=== PATIENT | female | born 1930 | race Caucasian/White ===

== ENCOUNTER 2016-08-03 16:41 | Inpatient (IN) | payer OTHER ==
[~2016-08-03] VITALS: Ht 142.2 cm; Wt 69.1 kg
[~2016-08-03 16:41] MED LIST: AMLO2.5T PO; CALC600T9 PO; FURO40TA3 PO; LOSA100T65 PO; MONT1TAB3 PO; PTU50 PO; SIMV40TA4 PO; SYMIN160 INH; TPRSR/25 PO; WARF3TAB PO
[2016-08-03] MEDS ORDERED: METOPROLOL TARTRATE 1 MG/ML VIAL IV STA (17:46)
[2016-08-03] MEDS ORDERED: ACETAMINOPHEN 500 MG TAB PO STA (17:48)
--- NOTE | 2016-08-03 17:49 | DIAGNOSTIC IMAGING REPORT ---
CHEST ONE VIEW PORTABLE CLINICAL HISTORY: Shortness of breath, cough and weakness. COMPARISON STUDY: Chest radiograph September 21, 2014. FINDINGS: Right lower lung airspace opacity is unchanged since prior exams. Moderate cardiomegaly is unchanged. There is no evidence of pulmonary edema. Widening of the right paratracheal stripe with leftward deviation of the trachea was shown to be due to a thyroid goiter on prior imaging studies. The appearance of the chest is unchanged. IMPRESSION: 1. No change in right lower lung airspace opacity since earlier exams. This may reflect right middle lobe atelectasis. 2. Stable cardiomegaly. No evidence of pulmonary edema. Electronically signed by: Christiano Hernandez M.D. 08/03/2016 5:47 PM Dictated Date/Time: 08/03/2016 5:45 PM
[2016-08-03 18:02] LABS: BASO % 0.2 %; BASO ABS # 0.02 K/uL (0-0.2); COMPLETE YES; EOS % 0.1 %; HEMATOCRIT 32.9 % (37-47); IG% 0.6 %; LYMPH % 3.5 %; LYMPH ABS # 0.41 K/uL (1.2-3.4); MEAN CELL VOLUME 85.5 fL (80-100); MEAN CORPUSCULAR HEMOGLOBIN 30.1 pg (25-34); MEAN CORPUSCULAR HGB CONC 35.3 g/dl (32-36); MEAN PLATELET VOLUME 9.5 fL (7.4-10.4); NEUT % 84.6 %; PLATELET COUNT 291 K/uL (130-400); RED BLOOD COUNT 3.85 M/uL (4.2-5.4)
[2016-08-03] MEDS ORDERED: IPRA0.06 NAE (18:12)
[2016-08-03] MEDS ORDERED: CHOL100041 PO (18:16)
[2016-08-03 18:20] LABS: PARTIAL THROMBOPLASTIN RATIO 1.8
[2016-08-03] MEDS ORDERED: CMD2 PO (18:25)
[2016-08-03 18:26] LABS: POTASSIUM 3.9 mmol/L (3.5-5.1)
[2016-08-03 18:27] LABS: PROTHROMBIN TIME (PATIENT) 53.8 SECONDS (9.0-12.0)
[2016-08-03 18:28] LABS: CALCIUM 8.8 mg/dl (8.5-10.1); CREATININE 1.7 mg/dl (0.60-1.20); INR 4.7 (0.9-1.1)
[2016-08-03 18:29] LABS: BUN/CREATININE RATIO 15.1 (10-20); THYROID STIMULATING HORMONE 0.304 uIu/ml (0.300-4.500)
[2016-08-03 18:34] LABS: CKMB/CK RATIO 1.1 (0-3.0)
[2016-08-03] MEDS ORDERED: LEVAQUIN 750MG / 150ML D5W IV STA (18:59)
[2016-08-03] MEDS ORDERED: MAGNESIUM HYDROXIDE SUSP 30 ML UDC PO PRN (20:00)
[2016-08-03] MEDS ORDERED: POLYETHYLENE (MIRALAX) 17 GM PACK PO PRN (20:00)
[2016-08-03] MEDS ORDERED: IV FLUIDS COMPLETED PRN (20:00)
[2016-08-03] MEDS ORDERED: NITROGLYCERIN 0.4 MG SL PER TAB CHARGE SL PRN (20:00)
[2016-08-03] MEDS ORDERED: ALUMINUM/MAGNESIUM/SIMETH (MAALOX MAX) 30 ML UDC PO PRN (20:00)
[2016-08-03] MEDS ORDERED: ONDANSETRON INJ 2 MG/ML 2 ML VIAL IV PRN (20:00)
[2016-08-03] MEDS ORDERED: WARFARIN SOD 2 MG TAB PO SCH (20:00)
[2016-08-03] MEDS ORDERED: FUROSEMIDE 40 MG TAB PO PRN (20:00)
[2016-08-03] MEDS ORDERED: ACETAMINOPHEN 325 MG TAB PO PRN (20:00)
[2016-08-03 20:10] LABS: PHOSPHORUS 2.9 mg/dl (2.5-4.9)
--- NOTE | 2016-08-03 20:33 | EMERGENCY ROOM VISIT NOTE ---
History Report prepared by Nathen: Andrew Bray Under the Supervision of: Dr. Saroj Jesus M.D. First contact with patient: 17:02 Chief Complaint: SHORTNESS OF BREATH Stated Complaint: SOB, COUGHING History of Present Illness The patient is an 86 year old female who presents to the Emergency Room with complaints of a persistent cough that began on Thursday of last week, five days prior to arrival. The patient is also complaining of shortness of breath and a rapid heart rate. She is experiencing some discomfort over her left chest as well. She denies experiencing any recent fevers or chills recently, but she has had some mild diarrhea and flank pain. The patient does have a history of atrial fibrillation, and states that she is slightly anxious about being in the emergency department. The patient denies LOC, headache, diaphoresis, visual changes, neck pain, breathing difficulties, nausea, vomiting, abdominal pain, melena, hematochezia, urinary symptoms, numbness, weakness, lymphadenopathy, rash, or other complaints. 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 A total of ten systems were reviewed and were otherwise negative. Past Medical & Surgical Medical Problems: (1) Afib (2) Atrial fibrillation (3) Benign hypertension (4) Chronic obstructive lung disease (5) Coronary artery disease (6) Hyperlipidemia (7) Hyperthyroidism (8) Hysterectomy (9) Myocardial infarction (10) orthopedic surgery (11) Osteopenia (12) Peripheral venous insufficiency (13) Shortness of breath Family History Diabetes mellitus Heart disease Hypertension Kidney disease Kidney stones Social History Smoking Status: Former Smoker Alcohol Use: none Marital Status: Housing Status: lives with significant other Occupation Status: retired Current/Historical Medications Scheduled Budesonide/Formoterol Fumarate (Symbicort 160/4.5 Inhaler), 2 PUFFS INH BID Cholecalciferol (D 1000), 1,000 UNITS PO DAILY Ipratropium [place] (Nasal) (Ipratropium [place]), 2 SPRAYS KANU UD Losartan Potassium (Cozaar), 100 MG PO DAILY Metoprolol Succinate (Metoprolol Succinate ER), 1.5 TAB PO DAILY Montelukast Sodium (Singulair), 10 MG PO DAILY Propylthiouracil (Ptu), 50 MG PO DAILY Simvastatin (Zocor), 20 MG PO QPM Warfarin Sod (Coumadin), 2 MG PO Q2D Warfarin Sodium (Coumadin), 3 MG PO DAILY UD Scheduled PRN Furosemide (Lasix), 40 MG PO DAILY PRN Allergies Coded Allergies: Lorazepam (Unverified Allergy, Unknown, hives, 08/03/16) Morphine (Verified Adverse Reaction, Mild, N&V, 08/18/14) Alendronate (Unverified Adverse Reaction, Unknown, gi upset, 08/03/16) Lisinopril (Unverified Adverse Reaction, Unknown, cough, 08/03/16) Methimazole (Unverified Adverse Reaction, Unknown, hair loss, 08/03/16) Pregabalin (Unverified Adverse Reaction, Unknown, non tolerant, 08/03/16) Ranitidine (Unverified Adverse Reaction, Unknown, non tolerant, 08/03/16) Physical Exam Vital Signs Date Time Temp Pulse Resp B/P Pulse Ox O2 Delivery O2 Flow Rate FiO2 08/03/16 20:00 119/82 08/03/16 19:56 108 24 91 08/03/16 19:30 115/53 08/03/16 19:26 96 32 94 08/03/16 19:00 103/62 08/03/16 18:56 104 34 95 08/03/16 18:34 97 Room Air 08/03/16 18:30 112/64 08/03/16 18:26 90 29 96 08/03/16 18:21 103 28 95 08/03/16 18:20 121/68 08/03/16 18:18 93/72 08/03/16 18:15 99/63 08/03/16 18:13 122/67 08/03/16 18:13 119 122/67 08/03/16 18:06 120 27 95 08/03/16 18:02 99/77 08/03/16 18:02 99/77 08/03/16 17:51 129 27 92 08/03/16 17:46 113 20 95 08/03/16 17:41 129 22 93 08/03/16 17:31 94 Room Air 08/03/16 16:51 37.7 136 20 115/69 94 Room Air Physical Exam GENERAL: Awake, alert, well-appearing, in no acute distress HENT: Normocephalic, atraumatic. Oropharynx unremarkable. EYES: Normal conjunctiva. Sclera non-icteric. NECK: Supple. No nuchal rigidity. FROM. No JVD. RESPIRATORY: Scattered Rhonchi bilaterally. We cough. CARDIAC: Tachycardiac rate, irregular rhythm. Extremities warm and well perfused. Pulses equal. ABDOMEN: Soft, non-distended. No tenderness to palpation. No rebound or guarding. No masses. RECTAL: Deferred. MUSCULOSKELETAL: Chest examination reveals no tenderness. The back is symmetrical on inspection without obvious abnormality. There right sided CVA tenderness to palpation. No joint edema. LOWER EXTREMITIES: 1+ edema bilaterally. Calves are equal size bilaterally and non-tender. No edema. No discoloration. NEURO: Normal sensorium. No sensory or motor deficits noted. SKIN: No rash or jaundice noted. Medical Decision & Procedures ER Provider Diagnostic Interpretation: X ray results as stated below per my interpretation and radiologist interpretation. Other radiology results as stated below per my review and radiologist interpretation CHEST ONE VIEW PORTABLE CLINICAL HISTORY: Shortness of breath, cough and weakness. COMPARISON STUDY: Chest radiograph September 21, 2014. FINDINGS: Right lower lung airspace opacity is unchanged since prior exams. Moderate cardiomegaly is unchanged. There is no evidence of pulmonary edema. Widening of the right paratracheal stripe with leftward deviation of the trachea was shown to be due to a thyroid goiter on prior imaging studies. The appearance of the chest is unchanged. IMPRESSION: 1. No change in right lower lung airspace opacity since earlier exams. This may reflect right middle lobe atelectasis. 2. Stable cardiomegaly. No evidence of pulmonary edema. Electronically signed by: Christiano Hernandez M.D. 08/03/2016 5:47 PM Dictated Date/Time: 08/03/2016 5:45 PM Laboratory Results 08/03/16 17:52 Red Blood Count 3.85, Mean Corpuscular Volume 85.5, Mean Corpuscular Hemoglobin 30.1, Mean Corpuscular Hemoglobin Concent 35.3, Mean Platelet Volume 9.5, Neutrophils (%) (Auto) 84.6, Lymphocytes (%) (Auto) 3.5, Monocytes (%) (Auto) 11.0, Eosinophils (%) (Auto) 0.1, Basophils (%) (Auto) 0.2, Neutrophils # (Auto ) 9.99, Lymphocytes # (Auto) 0.41, Monocytes # (Auto) 1.30, Eosinophils # (Auto ) 0.01, Basophils # (Auto) 0.02 08/03/16 17:52 Test 08/03/16 17:25 08/03/16 17:52 08/03/16 17:58 Influenza Type A Antigen Neg for Influ A (NEG) Influenza Type B Antigen Neg for Influ B (NEG) White Blood Count 11.80 K/uL (4.8-10.8) Red Blood Count 3.85 M/uL (4.2-5.4) Hemoglobin 11.6 g/dL (12.0-16.0) Hematocrit 32.9 % (37-47) Mean Corpuscular Volume 85.5 fL (80-100) Mean Corpuscular Hemoglobin 30.1 pg (25-34) Mean Corpuscular Hemoglobin Concent 35.3 g/dl (32-36) Platelet Count 291 K/uL (130-400) Mean Platelet Volume 9.5 fL (7.4-10.4) Neutrophils (%) (Auto) 84.6 % Lymphocytes (%) (Auto) 3.5 % Monocytes (%) (Auto) 11.0 % Eosinophils (%) (Auto) 0.1 % Basophils (%) (Auto) 0.2 % Neutrophils # (Auto) 9.99 K/uL (1.4-6.5) Lymphocytes # (Auto) 0.41 K/uL (1.2-3.4) Monocytes # (Auto) 1.30 K/uL (0.11-0.59) Eosinophils # (Auto) 0.01 K/uL (0-0.5) Basophils # (Auto) 0.02 K/uL (0-0.2) RDW Standard Deviation 46.3 fL (36.4-46.3) RDW Coefficient of Variation 14.8 % (11.5-14.5) Immature Granulocyte % (Auto) 0.6 % Immature Granulocyte # (Auto) 0.07 K/uL (0.00-0.02) Prothrombin Time 53.8 SECONDS (9.0-12.0) Prothromb Time International Ratio 4.7 (0.9-1.1) Activated Partial Thromboplast Time 46.9 SECONDS (21.0-31.0) Partial Thromboplastin Ratio 1.8 Anion Gap 12.0 mmol/L (3-11) Est Creatinine Clear Calc Drug Dose 17.5 ml/min Estimated GFR () 31.1 Estimated GFR (Non- 26.8 BUN/Creatinine Ratio 15.1 (10-20) Calcium Level 8.8 mg/dl (8.5-10.1) Phosphorus Level 2.9 mg/dl (2.5-4.9) Magnesium Level 2.0 mg/dl (1.8-2.4) Total Bilirubin 1.0 mg/dl (0.2-1) Direct Bilirubin 0.4 mg/dl (0-0.2) Aspartate Amino Transf (AST/SGOT) 35 U/L (15-37) Alanine Aminotransferase (ALT/SGPT) 26 U/L (12-78) Alkaline Phosphatase 82 U/L (45-117) Total Creatine Kinase 70 U/L (26-192) Creatine Kinase MB 0.8 ng/ml (0.5-3.6) Creatine Kinase MB Ratio 1.1 (0-3.0) Troponin I 0.016 ng/ml (0-0.045) Pro-B-Type Natriuretic Peptide 4046 pg/ml (0-1800) Total Protein 7.8 gm/dl (6.4-8.2) Albumin 2.7 gm/dl (3.4-5.0) Lipase 65 U/L (73-393) Thyroid Stimulating Hormone (TSH) 0.304 uIu/ml (0.300-4.500) Bedside Lactic Acid Venous 1.29 mmol/L (0.90-1.70) Laboratory results reviewed by me Medications Administered Medications (Trade) Dose Ordered Sig/Nani Route Start Time Stop Time Status Last Admin Dose Admin Metoprolol Tartrate (Lopressor Iv) 5 mg NOW STAT IV 08/03/16 17:46 08/03/16 17:48 DC 08/03/16 18:13 5 MG Acetaminophen (Tylenol Tab) 1,000 mg NOW STAT PO 08/03/16 17:48 08/03/16 17:49 DC 08/03/16 18:12 1,000 MG Levofloxacin (Levaquin / D5W) 750 mg NOW STAT IV 08/03/16 18:59 08/03/16 19:00 DC 08/03/16 19:16 750 MG ECG Indication: other (Cough ) Rate (beats per minute): 117 Rhythm: atrial fibrillation (with RVR ) Findings: Q waves (Septal), other (Low voltage QRS ) Comparison ECG Date: 01/26/2014 Change: no significant change ED Course 170: The patient was evaluated in room B9. A complete history and physical exam was performed. 1741: I checked on the patient at this time, she is still in rapid A-fib. 174: Ordered Lopressor 5 mg IV. 1747: Ordered Acetaminophen 1000 mg PO. 185: Ordered Levofloxacin 750 mg IV. 1901: I checked on the patient at this time, he was resting in bed. 1907: I discussed the case with Angela De La O, for Dr. Walters [facility] Hospitalist, she will evaluate the patient for further treatment. Medical Decision Triage Nursing notes reviewed. The patient's presentation and history were concerning for respiratory symptoms. Etiologies such as pneumonia, COPD, reactive airway disease, CHF, cardiac ischemia, pulmonary embolism, pneumothorax, musculoskeletal, infections, gastrointestinal, as well as others were entertained. patient was evaluated. She was in rapid A. fib. She was given IV Lopressor. Blood work was obtained. The patient has a mild leukocytosis. Her lactate was negative. Her BNP is mildly elevated and her renal function has worsened from 1.1-1.7. The patient's INR was supratherapeutic. Her flu test was negative. Her cardiac markers were unremarkable. The patient has some congestion on chest x-ray and has a productive cough. She has abnormal lung sounds on examination. This is concerning for developing pneumonia. The patient was given IV Levaquin. Given the multiple issues present further evaluation and management in the hospital was felt to be necessary. Patient was in agreement. Consult was made with internal medicine. The patient was evaluated for further treatment. The chart was completed utilizing [employer] voice recognition software. Grammatical errors, random word insertions, pronoun errors, and incomplete sentences are an occasional consequence of this system due to software limitations, ambient noise, and hardware issues. Any formal questions or concerns about the content, text, or information contained within the body of this dictation should be directly addressed to the physician for clarification. Consults Time Called: 1899 Consulting Physician: Angela De La O Returned Call: 1907 I discussed the case with Angela De La O, for Dr. Selena Dillon [facility] Hospitalist, she will evaluate the patient for further treatment. Impression Primary Impression: Flu-like symptoms Additional Impressions: Acute kidney failure Atrial fibrillation with RVR Scribe Attestation The scribe's documentation has been prepared under my direction and personally reviewed by me in its entirety. I confirm that the note above accurately reflects all work, treatment, procedures, and medical decision making performed by me. Departure Information Dispostion Being Evaluated By Hospitalist Referrals Dg Hobson M.D. (PCP) Patient Instructions My [facility] Problem Qualifiers
--- NOTE | 2016-08-03 20:47 | History and Physical ---
History & Physical Date & Time of Service: Aug 03, 2016 at 20:07 Chief Complaint: Sob, Coughing Primary Care Physician: Dg Hobson M.D. History of Present Illness Source: patient, family This is a pleasant 86 y/o F with a history of Afib (On metoprolol and Coumadin) , HTN, Hyperthyroid, Bronchiectasis, CAD s/p CO (medically managed), Borderline DM who presents with a 5 day history of persistent cough, shortness of breath and generally feeling unwell. Her cough is productive; white/yellow phlegm. Her appetite is low. Generally she feels run down and weak. She reports that prior to her symptoms starting, she was visiting her sister at a rehab center. She also reports multiple episodes of diarrhea that has slowed down somewhat. Admits to Subjective fevers/chills. She sleeps on 3 pillows normally, though denies a history of CHF Denies recent travel History of smoking many decades ago. Lives alone- is able to get around on her own for the most part, does have a cane / walker but uses it infrequently Stroke in 2010- residual vision deficits She denies chest pain, Abdominal pain, nausea, vomiting, urinary symptoms, melena, hematochezia Per her son, Her Afib, is usually under control and she is asymptomatic. She did have sepsis 2/2 to pneumonia back in 2013 for which she was admitted here. PCP- Dr. Hobson. Past Medical/Surgical History Medical Problems: (1) Atrial fibrillation Status: Chronic (2) Benign hypertension Status: Chronic (3) Chronic obstructive lung disease Status: Chronic (4) Coronary artery disease Status: Chronic (5) Hyperlipidemia Status: Chronic (6) Hyperthyroidism Status: Chronic (7) Hysterectomy Status: Resolved (8) Myocardial infarction Status: Resolved (9) orthopedic surgery Status: Resolved (10) Osteopenia Status: Chronic (11) Peripheral venous insufficiency Status: Chronic Family History Diabetes mellitus Heart disease Hypertension Kidney disease Kidney stones Social History Smoking Status: Former Smoker Alcohol Use: daily, small glass of wine or marysol Drug Use: none Marital Status: Housing status: lives alone Occupational Status: retired Immunizations History of Influenza Vaccine: Yes Influenza Vaccine Date: Mar 03, 2012 History of Tetanus Vaccine?: Unknown History of Pneumococcal: Yes History of Hepatitis B Vaccine: No Multi-Drug Resistant Organisms History of MDRO: No Allergies Coded Allergies: Lorazepam (Unverified Allergy, Unknown, hives, 08/03/16) Morphine (Verified Adverse Reaction, Mild, N&V, 08/18/14) Alendronate (Unverified Adverse Reaction, Unknown, gi upset, 08/03/16) Lisinopril (Unverified Adverse Reaction, Unknown, cough, 08/03/16) Methimazole (Unverified Adverse Reaction, Unknown, hair loss, 08/03/16) Pregabalin (Unverified Adverse Reaction, Unknown, non tolerant, 08/03/16) Ranitidine (Unverified Adverse Reaction, Unknown, non tolerant, 08/03/16) Home Medications Scheduled Budesonide/Formoterol Fumarate (Symbicort 160/4.5 Inhaler), 2 PUFFS INH BID Cholecalciferol (D 1000), 1,000 UNITS PO DAILY Ipratropium [place] (Nasal) (Ipratropium [place]), 2 SPRAYS KANU UD Losartan Potassium (Cozaar), 100 MG PO DAILY Metoprolol Succinate (Metoprolol Succinate ER), 1.5 TAB PO DAILY Montelukast Sodium (Singulair), 10 MG PO DAILY Propylthiouracil (Ptu), 50 MG PO DAILY Simvastatin (Zocor), 20 MG PO QPM Warfarin Sod (Coumadin), 2 MG PO Q2D Warfarin Sodium (Coumadin), 3 MG PO DAILY UD Scheduled PRN Furosemide (Lasix), 40 MG PO DAILY PRN Review of Systems Constitutional: + chills, + fatigue, + fever, + weakness ENT: No hearing loss Respiratory: + cough, + dyspnea at rest, + dyspnea on exertion, + shortness of breath, + sputum, + wheezing Cardiovascular: No chest pain, No edema Abdomen: + diarrhea, No nausea, No pain, No vomiting Musculoskeletal: No joint pain Genitourinary - Female: No dysuria, No urinary frequency, No urinary urgency Neurologic: + numbness/tingling (feet and hands- preexisting), No memory loss, No weakness Physical Exam Vital Signs Date Time Temp Pulse Resp B/P Pulse Ox O2 Delivery O2 Flow Rate FiO2 08/03/16 18:34 97 Room Air 08/03/16 18:21 103 28 95 08/03/16 18:20 121/68 08/03/16 18:18 93/72 08/03/16 18:15 99/63 08/03/16 18:13 122/67 08/03/16 18:13 119 122/67 08/03/16 18:06 120 27 95 08/03/16 18:02 99/77 08/03/16 18:02 99/77 08/03/16 17:51 129 27 92 08/03/16 17:46 113 20 95 08/03/16 17:41 129 22 93 08/03/16 17:31 94 Room Air 08/03/16 16:51 37.7 136 20 115/69 94 Room Air General Appearance: no apparent distress Eyes: normal inspection, PERRL, + abnormal EOM (2/2 pre-existing peripheral vision loss, R>L) ENT: hearing grossly normal, pharynx normal Respiratory/Chest: + decreased breath sounds, + rhonchi, + wheezing (faint expiratory) Cardiovascular: no edema, + tachycardia, + irregularly irregular Abdomen/GI: normal bowel sounds, non tender, soft Back: no CVA tenderness Extremities/Musculoskelatal: no calf tenderness, no pedal edema Neurologic/Psych: alert, normal mood/affect, oriented x 3, + sensory deficit Diagnostics Laboratory Results Results Past 24 Hours Test 08/03/16 17:25 08/03/16 17:52 08/03/16 17:58 Range/Units Influenza Type A Antigen Neg for Influ A NEG Influenza Type B Antigen Neg for Influ B NEG White Blood Count 11.80 4.8-10.8 K/uL Red Blood Count 3.85 4.2-5.4 M/uL Hemoglobin 11.6 12.0-16.0 g/dL Hematocrit 32.9 37-47 % Mean Corpuscular Volume 85.5 80-100 fL Mean Corpuscular Hemoglobin 30.1 25-34 pg Mean Corpuscular Hemoglobin Concent 35.3 32-36 g/dl Platelet Count 291 130-400 K/uL Mean Platelet Volume 9.5 7.4-10.4 fL Neutrophils (%) (Auto) 84.6 % Lymphocytes (%) (Auto) 3.5 % Monocytes (%) (Auto) 11.0 % Eosinophils (%) (Auto) 0.1 % Basophils (%) (Auto) 0.2 % Neutrophils # (Auto) 9.99 1.4-6.5 K/uL Lymphocytes # (Auto) 0.41 1.2-3.4 K/uL Monocytes # (Auto) 1.30 0.11-0.59 K/uL Eosinophils # (Auto) 0.01 0-0.5 K/uL Basophils # (Auto) 0.02 0-0.2 K/uL RDW Standard Deviation 46.3 36.4-46.3 fL RDW Coefficient of Variation 14.8 11.5-14.5 % Immature Granulocyte % (Auto) 0.6 % Immature Granulocyte # (Auto) 0.07 0.00-0.02 K/uL Prothrombin Time 53.8 9.0-12.0 SECONDS Prothromb Time International Ratio 4.7 0.9-1.1 Activated Partial Thromboplast Time 46.9 21.0-31.0 SECONDS Partial Thromboplastin Ratio 1.8 Sodium Level 133 136-145 mmol/L Potassium Level 3.9 3.5-5.1 mmol/L Chloride Level 95 98-107 mmol/L Carbon Dioxide Level 26 21-32 mmol/L Anion Gap 12.0 3-11 mmol/L Blood Urea Nitrogen 26 7-18 mg/dl Creatinine 1.70 0.60-1.20 mg/dl Est Creatinine Clear Calc Drug Dose 17.5 ml/min Estimated GFR () 31.1 Estimated GFR (Non- 26.8 BUN/Creatinine Ratio 15.1 10-20 Random Glucose 130 70-99 mg/dl Calcium Level 8.8 8.5-10.1 mg/dl Magnesium Level 2.0 1.8-2.4 mg/dl Total Bilirubin 1.0 0.2-1 mg/dl Direct Bilirubin 0.4 0-0.2 mg/dl Aspartate Amino Transf (AST/SGOT) 35 15-37 U/L Alanine Aminotransferase (ALT/SGPT) 26 12-78 U/L Alkaline Phosphatase 82 45-117 U/L Total Creatine Kinase 70 26-192 U/L Creatine Kinase MB 0.8 0.5-3.6 ng/ml Creatine Kinase MB Ratio 1.1 0-3.0 Troponin I 0.016 0-0.045 ng/ml Pro-B-Type Natriuretic Peptide 4046 0-1800 pg/ml Total Protein 7.8 6.4-8.2 gm/dl Albumin 2.7 3.4-5.0 gm/dl Lipase 65 73-393 U/L Thyroid Stimulating Hormone (TSH) 0.304 0.300-4.500 uIu/ml Bedside Lactic Acid Venous 1.29 0.90-1.70 mmol/L Microbiology Results 08/03/16 Blood Culture, Received Pending 08/03/16 Blood Culture, Received Pending Impression Assessment and Plan Viral URI Vs. Bronchitis vs. Early pneumonia with h/o of severe Bronchiectasis No radiological evidence of pneumonia at this time, however, given patient's age and chronic history of bronchiectasis and lung exam is revealing of decreased breath sounds, wheezing and ronchi; will treat with levaquin and rocephin. Rapid Flu -'ve Continue Symbicort, and add Xoponex lactate negative Procal pending- if normal, could consider d/c antibiotics Atrial Fibrillation- rate controlled currently Continue PO Metoprolol IV 5 mg metoprolol PRN Hold Coumadin- Supratherapeutic INR- check PT/inr daily TSH is wnl Troponin negative, trend x 3 Mild fluid overload BNP - 4000, no Xray evidence of edema With MARIA DEL CARMEN, would use caution with Lasix. - she takes this PRN for LE swelling but has no formal diagnosis of CHF- reports that she was asked to stop taking it daily by PCP due to MARIA DEL CARMEN and being too dry. Could consider an ECHO Hyponatremia IV fluids- gentle Hydration MARIA DEL CARMEN IV fluids Recheck BMP AM Anemia Hemoccult pending most recent hgb was 15 trend CBC- Consider Iron studies/ B12/folate if Hemoccult negative- could do outpatient if stable. Hyperthyroidism: Continue PTU- euthyroid Diarrhea Check C.diff/ stool cultures h/o of CAD Continue Statin DVT proph Hold with supratherapeutic INR GI proph No indication Regular Diet Code: Full Level of Care Telemetry Resuscitation Status FULL RESUSCITATION VTE Prophylaxis VTE Risk Assessment Done? Y/N: Yes Risk Level: Moderate Given or contraindicated: Warfarin (Coumadin) Assessment and Plan Attending Addendum: I have physically seen and examined this patient, have directed their medical care, have supervised the medical residents activities, and agree with the H&P as noted above, with the following changes: The patient is awake, well-developed and adequately nourished, alert and oriented 3, normocephalic and atraumatic, lying in bed and in no acute distress , with an occasional rattling cough. HEENT--PERRL, EOMI, mucous membranes and oropharynx dry. Neck--supple, no JVD or bruits, thyroid normal, trachea midline, no adenopathy. Heart--normal S1 and S2, no extra beats, no murmurs, rubs or gallops. Lungs--coarse breath sounds bilaterally, no respiratory distress, no accessory muscle use. Abdomen--normal bowel sounds and soft, nontender and nondistended, no hernias or masses, no organomegaly. Extremities--no cyanosis, clubbing or edema. There are good distal pulses b/l. Dermatologic--normal skin turgor, normal color, warm and dry, no abnormal lymph nodes, no rash. Neurologic--cranial nerves II through XII grossly intact, motor and sensory examination normal. Rheumatologic--normal range of motion, nontender, muscles and joints. Psychiatric--normal affect. Assessment and Plan: Upper respiratory infection--patient has had ongoing cough due to underlying COPD, and typically has clear mucus. However, over the past week she developed A more grayish color to the sputum, and her son noted her having more audible mucousy breath sounds. We'll place her on ceftriaxone 1 g IV daily, ofloxacin 5 mg every 24 hours, guaifenesin extended release 600 mg by mouth twice a day, Xopenex Atrovent nebulizer to use every 6 hours while awake and every 2 hours when necessary. Will hold Symbicort. Continue montelukast sodium 10 mg by mouth daily. Atrial fibrillation/hypertension/CAD--the patient will be admitted to the telemetry unit for serial cardiac enzymes, cardiac rhythm monitoring and a 2-D echocardiogram with Dopplers. Her heart rate occasionally goes into the 110 range, and likely has some volatility due to underlying respiratory process. We 'll continue metoprolol succinate ER, losartan potassium 100 mg by mouth daily. Hold warfarin as tolerated supratherapeutic INR gets) 2.5. Hypercholesterolemia continue simvastatin 20 mg by mouth every afternoon. Hyperthyroidism-- continue PTU 50 mg by mouth daily. Rhinorrhea--continue ipratropium bromide nasal spray 2 sprays each nostril meals.
[2016-08-03 21:02] VITALS: BP 108/75; PULSE 92; TEMP 36.6; O2SAT 98; Ht 142.2 cm; Wt 69.1 kg
[2016-08-03] MEDS ORDERED: SODIUM CHLORIDE 0.9% 1000ML 1,000 ML IV SCH (21:15)
[2016-08-03 21:38] VITALS: PULSE 92; O2SAT 97
[2016-08-03] MEDS: LEVALBUTEROL 1.25MG/0.5ML NEB INH SCH (21:38)
[2016-08-03] MEDS: MONTELUKAST SOD 10 MG TAB PO SCH (21:56)
[2016-08-03] MEDS: SIMVASTATIN 20 MG TAB PO SCH (21:56)
[2016-08-03] MEDS: BUDESONIDE/FORMOTEROL FUMARATE 160/4.5 60 PUFFS/INHALER INH SCH (21:57)
[2016-08-03] MEDS: CEFTRIAXONE SOD INJ 2,000 MG in DEXTROSE 5% 50ML 50 ML IV SCH (21:57)
[2016-08-03 23:19] VITALS: BP 110/73; PULSE 93; TEMP 36.6; O2SAT 95
[2016-08-04] VITALS (10 sets, daily range): BP systolic 116–141; BP diastolic 66–84; PULSE 84–133; TEMP 36.6–36.8; O2SAT 96–100
[2016-08-04 01:07] LABS: MANUAL MICROSCOPIC REQUIRED? NO; REVIEW REQ? YES; URINE APPEARANCE CLOUDY (CLEAR); URINE BILIRUBIN NEG (NEG); URINE COLOR YELLOW; URINE EPITHELIAL CELL AUTO >30 /lpf (0-5); URINE NITRITE NEG (NEG); URINE SPECIFIC GRAVITY 1.007 (1.000-1.030); UROBILINOGEN NEG (NEG)
[2016-08-04] MEDS: LEVALBUTEROL 1.25MG/0.5ML NEB INH SCH ×4 (01:42→19:15)
[2016-08-04] MEDS: METOPROLOL TARTRATE 1 MG/ML VIAL IV PRN ×3 (02:09→20:35)
[2016-08-04] MEDS ORDERED: LEVOFLOXACIN CONSULT ACTIVE PRN (04:00)
[2016-08-04] MEDS: LOSARTAN POTASSIUM 50 MG TAB PO SCH (07:32)
[2016-08-04] MEDS: METOPROLOL SUCC 25MG EXT REL TAB PO SCH (07:33)
[2016-08-04] MEDS: CHOLECALCIFEROL 1000 INTER.UNIT TAB PO SCH (07:33)
[2016-08-04] MEDS: BUDESONIDE/FORMOTEROL FUMARATE 160/4.5 60 PUFFS/INHALER INH SCH ×2 (07:36→20:29)
[2016-08-04 07:38] LABS: BASO % 0.2 %; BASO ABS # 0.02 K/uL (0-0.2); COMPLETE YES; EOS % 0.5 %; IG% 0.6 %; LYMPH % 4.5 %; LYMPH ABS # 0.42 K/uL (1.2-3.4); MEAN CELL VOLUME 87.4 fL (80-100); MEAN CORPUSCULAR HEMOGLOBIN 30.1 pg (25-34); MEAN CORPUSCULAR HGB CONC 34.4 g/dl (32-36); MEAN PLATELET VOLUME 9.7 fL (7.4-10.4); MONO % 12.2 %; PLATELET COUNT 270 K/uL (130-400); RED BLOOD COUNT 3.66 M/uL (4.2-5.4); WHITE BLOOD COUNT 9.35 K/uL (4.8-10.8)
[2016-08-04 07:56] LABS: PROTHROMBIN TIME (PATIENT) 67.1 SECONDS (9.0-12.0)
[2016-08-04] MEDS: PROPYLTHIOURACIL 50 MG TAB PO SCH (07:59)
[2016-08-04] MEDS ORDERED: ALBUT/IPRATROP 3MG/0.5MG NEB 3 ML VIAL INH SCH (08:00)
[2016-08-04 08:10] LABS: BUN/CREATININE RATIO 13.2 (10-20); CALCIUM 8.9 mg/dl (8.5-10.1); CREATININE 1.9 mg/dl (0.60-1.20); POTASSIUM 3.5 mmol/L (3.5-5.1)
[2016-08-04 08:28] LABS: INR 5.8 (0.9-1.1)
[2016-08-04] MEDS ORDERED: WARFARIN SOD 3 MG TAB PO SCH (16:00)
--- NOTE | 2016-08-04 16:22 | Progress Note ---
Subjective Date of Service: Aug 04, 2016. (Melissa Romero PA-C) Subjective Pt evaluation today including: conversation w/ patient, physical exam, chart review, lab review, review of studies, review of inpatient medication list Patient seen and evaluated. Patient with intermittent A. fib with RVR. He is be related to ambulation coughing. She reports continuance of a productive cough of thick discolored sputum. Reports generally poor sleep overnight due to this coughing. Verbalizes no other complaints at this time. (Melissa Romero PA-C) Problem List Medical Problems: (1) Acute kidney failure Status: Acute (2) Atrial fibrillation with RVR Status: Acute (3) Flu-like symptoms Status: Acute (Melissa Romero PA-C) Review of Systems Constitutional: No chills, No fever Respiratory: + cough, + sputum, No shortness of breath Cardiac: No chest pain Abdomen: No constipation, No diarrhea, No nausea, No pain, No vomiting Musculoskeletal: No calf pain, No swelling Female : No dysuria Skin: No rash (Melissa Romero PA-C) Medications Current Inpatient Medications Medications (Trade) Dose Ordered Sig/Nani Route Start Time Stop Time Status Last Admin Dose Admin Miscellaneous 1 ea 1 ea PRN PRN N/A 08/03/16 20:00 08/03/17 19:59 Sodium Chloride (Nss 1000ml) 1,000 ml @ 60 mls/hr [id number] IV 08/03/16 21:15 09/02/16 21:14 08/03/16 21:58 60 MLS/HR Acetaminophen (Tylenol Tab) 650 mg Q4H PRN PO 08/03/16 20:00 09/02/16 19:59 Al Hydrox/Mg Hydrox/Simethicone (Maalox Max Susp) 15 ml Q4H PRN PO 08/03/16 20:00 09/02/16 19:59 Magnesium Hydroxide (Milk Of Magnesia Susp) 30 ml Q12H PRN PO 08/03/16 20:00 09/02/16 19:59 Ondansetron HCl (Zofran Inj) 4 mg Q6H PRN IV 08/03/16 20:00 09/02/16 19:59 Nitroglycerin (Nitrostat Tab) 0.4 mg UD PRN SL 08/03/16 20:00 09/02/16 19:59 Polyethylene (Miralax Powder Packet) 17 gm DAILY PRN PO 08/03/16 20:00 09/02/16 19:59 Budesonide/ Formoterol Fumarate (Symbicort 160/ 4.5 Inh) 2 puffs BID INH 08/03/16 21:00 09/02/16 20:59 08/04/16 07:36 2 PUFFS Furosemide (Lasix Tab) 40 mg DAILY PRN PO 08/03/16 20:00 09/02/16 19:59 08/04/16 07:32 40 MG Losartan Potassium (coZAAR TAB) 100 mg DAILY PO 08/04/16 09:00 09/03/16 08:59 08/04/16 07:32 100 MG Metoprolol Succinate (Toprol Xl Tab) 37.5 mg DAILY PO 08/04/16 09:00 09/03/16 08:59 08/04/16 07:33 37.5 MG Montelukast Sodium (Singulair Tab) 10 mg PM PO 08/03/16 21:00 09/02/16 20:59 08/03/16 21:56 10 MG Propylthiouracil (Ptu Tab) 50 mg DAILY PO 08/04/16 09:00 09/03/16 08:59 08/04/16 07:59 50 MG Simvastatin (Zocor Tab) 20 mg QPM PO 08/03/16 21:00 09/02/16 20:59 08/03/16 21:56 20 MG Warfarin Sodium (Coumadin Tab) 2 mg Q2D PO 08/03/16 20:00 09/02/16 19:59 Future Hold Warfarin Sodium (Coumadin Tab) 3 mg DAILY@1600 PO 08/04/16 16:00 09/03/16 15:59 Future Hold Cholecalciferol (Vitamin D Tab) 1,000 inter.unit DAILY PO 08/04/16 09:00 09/03/16 08:59 08/04/16 07:33 1,000 INTER.UNIT Miscellaneous Information (Order Awaiting Action) 1 ea QS N/A 08/04/16 00:00 09/03/16 00:00 Metoprolol Tartrate (Lopressor Iv) 5 mg Q6 PRN IV 08/03/16 20:15 09/02/16 20:14 08/04/16 07:49 5 MG Levalbuterol 1.25 mg 1.25 mg Q6R INH 08/03/16 21:00 09/02/16 20:59 08/04/16 07:05 1.25 MG Ceftriaxone Sodium/Dextrose (Rocephin Inj/D5 50ml) 70 ml @ 100 mls/hr Q24H IV 08/03/16 22:00 08/10/16 21:59 08/03/16 21:57 100 MLS/HR Levofloxacin 1 ea 1 ea UD PRN N/A 08/04/16 04:00 09/03/16 03:59 Levofloxacin/Prmx (Levaquin / D5W/ Premixed D5W) 100 ml @ 100 mls/hr Q2D@1900 IV 08/05/16 19:00 08/10/16 18:59 (Melissa Romero, MARLA) Objective Vital Signs Date Time Temp Pulse Resp B/P Pulse Ox O2 Delivery O2 Flow Rate FiO2 08/04/16 15:52 36.8 103 16 117/75 100 Nasal Cannula 2.0 Humidified Oxygen 08/04/16 12:00 Room Air 08/04/16 11:54 36.6 107 16 116/66 98 Nasal Cannula 2.0 08/04/16 08:00 Room Air 08/04/16 07:57 36.6 133 18 127/84 98 Nasal Cannula 2.0 08/04/16 07:49 152 119/72 08/04/16 07:05 92 18 96 Room Air 08/04/16 04:00 Room Air 08/04/16 04:00 36.6 88 17 116/69 96 Nasal Cannula 2.0 08/04/16 02:09 122 08/04/16 02:05 133 122/69 08/04/16 01:43 97 18 96 Room Air 08/03/16 23:59 Room Air 08/03/16 23:19 36.6 93 18 110/73 95 Room Air 08/03/16 21:38 92 18 97 Room Air 08/03/16 21:02 36.6 92 20 108/75 98 Room Air 08/03/16 20:30 100 24 119/82 97 08/03/16 20:00 119/82 08/03/16 19:56 108 24 91 08/03/16 19:30 115/53 08/03/16 19:26 96 32 94 08/03/16 19:00 103/62 08/03/16 18:56 104 34 95 08/03/16 18:34 97 Room Air 08/03/16 18:30 112/64 08/03/16 18:26 90 29 96 08/03/16 18:21 103 28 95 08/03/16 18:20 121/68 08/03/16 18:18 93/72 08/03/16 18:15 99/63 08/03/16 18:13 122/67 08/03/16 18:13 119 122/67 08/03/16 18:06 120 27 95 08/03/16 18:02 99/77 08/03/16 18:02 99/77 08/03/16 17:51 129 27 92 08/03/16 17:46 113 20 95 08/03/16 17:41 129 22 93 08/03/16 17:31 94 Room Air 08/03/16 16:51 37.7 136 20 115/69 94 Room Air (Melissa Romero., PA-C) Physical Exam General Appearance: WD/WN, no apparent distress Eyes: sclerae normal ENT: hearing grossly normal Neck: supple, no JVD, trachea midline Respiratory/Chest: lungs clear, no respiratory distress, no accessory muscle use, + decreased breath sounds Cardiovascular: no gallop, no murmur, + irregularly irregular Abdomen: normal bowel sounds, non tender, soft Extremities: no pedal edema, no calf tenderness Neurologic/Psychiatric: alert, oriented x 3 Skin: normal color, warm/dry (Melissa Romero, PA-C) General Appearance: no apparent distress Eyes: normal inspection, EOMI ENT: normal ENT inspection, hearing grossly normal Neck: supple Respiratory/Chest: chest non-tender, lungs clear, normal breath sounds, no accessory muscle use Cardiovascular: regular rate, rhythm, no edema, no gallop, no JVD Abdomen: normal bowel sounds, non tender, soft, no organomegaly Extremities: normal range of motion, non-tender, normal inspection, no pedal edema 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, no motor/sensory deficits, alert, normal mood/affect, oriented x 3 (Mary Ann Vuong MD) Laboratory Results Last 24 Hours Test 08/03/16 17:25 08/03/16 17:52 08/03/16 17:58 08/04/16 00:55 Influenza Type A Antigen Neg for Influ A Influenza Type B Antigen Neg for Influ B White Blood Count 11.80 K/uL Red Blood Count 3.85 M/uL Hemoglobin 11.6 g/dL Hematocrit 32.9 % Mean Corpuscular Volume 85.5 fL Mean Corpuscular Hemoglobin 30.1 pg Mean Corpuscular Hemoglobin Concent 35.3 g/dl Platelet Count 291 K/uL Mean Platelet Volume 9.5 fL Neutrophils (%) (Auto) 84.6 % Lymphocytes (%) (Auto) 3.5 % Monocytes (%) (Auto) 11.0 % Eosinophils (%) (Auto) 0.1 % Basophils (%) (Auto) 0.2 % Neutrophils # (Auto) 9.99 K/uL Lymphocytes # (Auto) 0.41 K/uL Monocytes # (Auto) 1.30 K/uL Eosinophils # (Auto) 0.01 K/uL Basophils # (Auto) 0.02 K/uL RDW Standard Deviation 46.3 fL RDW Coefficient of Variation 14.8 % Immature Granulocyte % (Auto) 0.6 % Immature Granulocyte # (Auto) 0.07 K/uL Prothrombin Time 53.8 SECONDS Prothromb Time International Ratio 4.7 Activated Partial Thromboplast Time 46.9 SECONDS Partial Thromboplastin Ratio 1.8 Sodium Level 133 mmol/L Potassium Level 3.9 mmol/L Chloride Level 95 mmol/L Carbon Dioxide Level 26 mmol/L Anion Gap 12.0 mmol/L Blood Urea Nitrogen 26 mg/dl Creatinine 1.70 mg/dl Est Creatinine Clear Calc Drug Dose 17.5 ml/min Estimated GFR () 31.1 Estimated GFR (Non- 26.8 BUN/Creatinine Ratio 15.1 Random Glucose 130 mg/dl Calcium Level 8.8 mg/dl Phosphorus Level 2.9 mg/dl Magnesium Level 2.0 mg/dl Total Bilirubin 1.0 mg/dl Direct Bilirubin 0.4 mg/dl Aspartate Amino Transf (AST/SGOT) 35 U/L Alanine Aminotransferase (ALT/SGPT) 26 U/L Alkaline Phosphatase 82 U/L Total Creatine Kinase 70 U/L Creatine Kinase MB 0.8 ng/ml Creatine Kinase MB Ratio 1.1 Troponin I 0.016 ng/ml Pro-B-Type Natriuretic Peptide 4046 pg/ml Total Protein 7.8 gm/dl Albumin 2.7 gm/dl Lipase 65 U/L Procalcitonin 0.20 ng/mL Thyroid Stimulating Hormone (TSH) 0.304 uIu/ml Bedside Lactic Acid Venous 1.29 mmol/L Urine Color YELLOW Urine Appearance CLOUDY Urine pH 5.0 Urine Specific [place] 1.007 Urine Protein NEG Urine Glucose (UA) NEG Urine Ketones NEG Urine Occult Blood 2+ Urine Nitrite NEG Urine Bilirubin NEG Urine Urobilinogen NEG Urine Leukocyte Esterase MODERATE Urine WBC (Auto) 10-30 /hpf Urine RBC (Auto) 0-4 /hpf Urine Hyaline Casts (Auto) 1-5 /lpf Urine Epithelial Cells (Auto) >30 /lpf Urine Bacteria (Auto) NEG Urine Renal Epithelial Cells 0-5 /lpf Urine Yeast (Auto) Test 08/04/16 01:07 08/04/16 06:57 08/04/16 07:07 08/04/16 11:34 Troponin I < 0.015 ng/ml 0.016 ng/ml Bedside Glucose 103 mg/dl 125 mg/dl White Blood Count 9.35 K/uL Red Blood Count 3.66 M/uL Hemoglobin 11.0 g/dL Hematocrit 32.0 % Mean Corpuscular Volume 87.4 fL Mean Corpuscular Hemoglobin 30.1 pg Mean Corpuscular Hemoglobin Concent 34.4 g/dl Platelet Count 270 K/uL Mean Platelet Volume 9.7 fL Neutrophils (%) (Auto) 82.0 % Lymphocytes (%) (Auto) 4.5 % Monocytes (%) (Auto) 12.2 % Eosinophils (%) (Auto) 0.5 % Basophils (%) (Auto) 0.2 % Neutrophils # (Auto) 7.66 K/uL Lymphocytes # (Auto) 0.42 K/uL Monocytes # (Auto) 1.14 K/uL Eosinophils # (Auto) 0.05 K/uL Basophils # (Auto) 0.02 K/uL RDW Standard Deviation 48.2 fL RDW Coefficient of Variation 15.0 % Immature Granulocyte % (Auto) 0.6 % Immature Granulocyte # (Auto) 0.06 K/uL Prothrombin Time 67.1 SECONDS Prothromb Time International Ratio 5.8 Sodium Level 134 mmol/L Potassium Level 3.5 mmol/L Chloride Level 97 mmol/L Carbon Dioxide Level 25 mmol/L Anion Gap 12.0 mmol/L Blood Urea Nitrogen 25 mg/dl Creatinine 1.90 mg/dl Est Creatinine Clear Calc Drug Dose 16.1 ml/min Estimated GFR () 27.2 Estimated GFR (Non- 23.5 BUN/Creatinine Ratio 13.2 Random Glucose 99 mg/dl Calcium Level 8.9 mg/dl Test 08/04/16 12:50 Troponin I 0.015 ng/ml (Melissa Romero, PA-C) Assessment and Plan Viral URI vs Bronchitis - H/O Severe Bronchiectasis: - Ceftriaxone 2 g IV daily and levofloxacin 100 mg IV Q48H - renal dosing - Symbicort 2 puffs BID and Xopenex - Singulair 10 mg daily Atrial Fibrillation with RVR: Intermittent - Echo (2013) - EF 40%; anterior wall motion abnormality - denies H/O CHF - Mild Systolic CHF per last echo - Metoprolol 37.5 mg daily and metoprolol IV Q6H PRN - Continue to hold Coumadin -supratherapeutic - trend INR - no evidence of active bleeding -- Consideration for vitamin K in AM Acute Kidney Injury: - Gentle hydration of NSS at 60 mL/hr - Mild LE edema - Lasix PRN for SOB - otherwise avoid at this time - PCP instructed to stop - Trend BMP Normochromic/cytic Anemia - Anemia of Chronic Disease? - Hemoccult pending - Will obtain iron studies and B12/folate Mild Hyponatremia: - IVF - NSS at 60 mL/hr HTN: Stable - Losartan 100 mg daily Hyperthyroidism: - PTU 50 mg daily DVT Prophylaxis: LISA/SCD - supratherapeutic INR Code Status: FULL RESUSCITATION Disposition: PT/OT evaluations - patient lives at home with family nearby (Melissa Romero, PA-C) Addendum Patient was seen and examined by me I discussed and formulated the assessment and plan with Miss Melissa Romero (HERNANDO) , I also agree with her physical exam PE as above switch albuterol to xopenex add atrovent continue supportive care labs in am improving slowly Azithromycin for bronchitis mary ann SORENSEN hospitalist (Mary Ann Vuong, MD)
[2016-08-04] MEDS: SODIUM CHLORIDE 0.9% 1000ML 1,000 ML IV SCH (17:16)
[2016-08-04] MEDS: MONTELUKAST SOD 10 MG TAB PO SCH (20:28)
[2016-08-04] MEDS: SIMVASTATIN 20 MG TAB PO SCH (20:31)
[2016-08-04] MEDS: IPRATROPIUM BROMIDE NEB SOLN 0.02% 2.5 ML VIAL INH SCH (21:00)
[2016-08-04] MEDS: CEFTRIAXONE SOD INJ 2,000 MG in DEXTROSE 5% 50ML 50 ML IV SCH (22:23)
[2016-08-05] VITALS (13 sets, daily range): BP systolic 92–118; BP diastolic 57–80; PULSE 61–116; TEMP 36.4–37; O2SAT 93–100
[2016-08-05] MEDS: LEVALBUTEROL 1.25MG/0.5ML NEB INH SCH ×4 (02:15→19:24)
[2016-08-05] MEDS: IPRATROPIUM BROMIDE NEB SOLN 0.02% 2.5 ML VIAL INH SCH ×2 (07:15→23:11)
--- NOTE | 2016-08-05 07:24 | Progress Note ---
Subjective Date of Service: Aug 05, 2016. Subjective Pt evaluation today including: conversation w/ patient, physical exam, chart review, lab review, review of studies, review of inpatient medication list Patient seen and evaluated. Continues to have intermittent episodes of RVR. States some generalized malaise and fatigue but reports improvement in overall cough and sputum characteristics. She does have a history of COPD and reports a chronic cough that is normally thick with white sputum Sputum coloration yellow slowly returning to baseline. She is currently on room air with no complaints of SOB. INR trending down at 4.8 with no obvious signs of bleeding. Problem List Medical Problems: (1) Acute kidney failure Status: Acute (2) Atrial fibrillation with RVR Status: Acute (3) Flu-like symptoms Status: Acute Review of Systems Constitutional: No chills, No fever ENT: + nasal symptoms, No sore throat, No trouble swallowing Respiratory: + cough, + sputum, No shortness of breath Cardiac: No chest pain Abdomen: + diarrhea, No constipation, No nausea, No pain, No vomiting Musculoskeletal: + swelling (chronic at baseline), No calf pain Female : No dysuria Heme: No abnormal bleeding/bruising Skin: No rash Medications Current Inpatient Medications Medications (Trade) Dose Ordered Sig/Nani Route Start Time Stop Time Status Last Admin Dose Admin Miscellaneous (Iv Fluids Completed) 1 ea PRN PRN N/A 08/03/16 20:00 08/03/17 19:59 Acetaminophen (Tylenol Tab) 650 mg Q4H PRN PO 08/03/16 20:00 09/02/16 19:59 Al Hydrox/Mg Hydrox/Simethicone (Maalox Max Susp) 15 ml Q4H PRN PO 08/03/16 20:00 09/02/16 19:59 Magnesium Hydroxide (Milk Of Magnesia Susp) 30 ml Q12H PRN PO 08/03/16 20:00 09/02/16 19:59 Ondansetron HCl (Zofran Inj) 4 mg Q6H PRN IV 08/03/16 20:00 09/02/16 19:59 Nitroglycerin (Nitrostat Tab) 0.4 mg UD PRN SL 08/03/16 20:00 09/02/16 19:59 Polyethylene (Miralax Powder Packet) 17 gm DAILY PRN PO 08/03/16 20:00 09/02/16 19:59 Budesonide/ Formoterol Fumarate (Symbicort 160/ 4.5 Inh) 2 puffs BID INH 08/03/16 21:00 09/02/16 20:59 08/05/16 09:53 2 PUFFS Furosemide (Lasix Tab) 40 mg DAILY PRN PO 08/03/16 20:00 09/02/16 19:59 08/04/16 07:32 40 MG Losartan Potassium (coZAAR TAB) 100 mg DAILY PO 08/04/16 09:00 09/03/16 08:59 08/05/16 09:54 100 MG Metoprolol Succinate (Toprol Xl Tab) 37.5 mg DAILY PO 08/04/16 09:00 09/03/16 08:59 08/05/16 09:58 37.5 MG Montelukast Sodium (Singulair Tab) 10 mg PM PO 08/03/16 21:00 09/02/16 20:59 08/04/16 20:28 10 MG Propylthiouracil (Ptu Tab) 50 mg DAILY PO 08/04/16 09:00 09/03/16 08:59 08/05/16 09:56 50 MG Simvastatin (Zocor Tab) 20 mg QPM PO 08/03/16 21:00 09/02/16 20:59 08/03/16 21:56 20 MG Warfarin Sodium (Coumadin Tab) 2 mg Q2D PO 08/03/16 20:00 09/02/16 19:59 Future Hold Warfarin Sodium (Coumadin Tab) 3 mg DAILY@1600 PO 08/04/16 16:00 09/03/16 15:59 Future Hold Cholecalciferol (Vitamin D Tab) 1,000 inter.unit DAILY PO 08/04/16 09:00 09/03/16 08:59 08/05/16 09:58 1,000 INTER.UNIT Miscellaneous Information (Order Awaiting Action) 1 ea QS N/A 08/04/16 00:00 09/03/16 00:00 Metoprolol Tartrate (Lopressor Iv) 5 mg Q6 PRN IV 08/03/16 20:15 09/02/16 20:14 08/05/16 14:09 5 MG Levalbuterol 1.25 mg 1.25 mg Q6R INH 08/03/16 21:00 09/02/16 20:59 08/05/16 02:15 1.25 MG Ceftriaxone Sodium/Dextrose (Rocephin Inj/D5 50ml) 70 ml @ 100 mls/hr Q24H IV 08/03/16 22:00 08/10/16 21:59 08/04/16 22:23 100 MLS/HR Levofloxacin 1 ea 1 ea UD PRN N/A 08/04/16 04:00 09/03/16 03:59 Levofloxacin 500 mg/Prmx 100 ml @ 100 mls/hr Q2D@1900 IV 08/05/16 19:00 08/10/16 18:59 Sodium Chloride (Nss 1000ml) 1,000 ml @ 60 mls/hr [id number] IV 08/04/16 16:15 09/03/16 16:14 08/05/16 09:53 60 MLS/HR Ipratropium [place] (Atrovent 0.02% 0.5MG/2.5ML Neb) 0.5 mg Q8R INH 08/05/16 00:00 09/04/16 00:00 08/05/16 07:15 0.5 MG Objective Vital Signs Date Time Temp Pulse Resp B/P Pulse Ox O2 Delivery O2 Flow Rate FiO2 08/05/16 04:00 Room Air 2.0 Nasal Cannula 08/05/16 03:15 36.9 116 18 115/72 100 Nasal Cannula 2.0 08/05/16 02:15 61 18 96 Nasal Cannula 2.0 08/05/16 00:01 97 Room Air 2.0 Nasal Cannula 08/04/16 23:12 36.7 90 18 141/77 97 Room Air 08/04/16 20:35 136 137/76 08/04/16 20:00 Nasal Cannula 2.0 08/04/16 19:21 36.8 98 18 137/76 100 Nasal Cannula 2.0 Humidified Oxygen 08/04/16 19:15 84 18 98 Room Air 08/04/16 16:00 Room Air 08/04/16 15:52 36.8 103 16 117/75 100 Nasal Cannula 2.0 Humidified Oxygen 08/04/16 12:00 Room Air 08/04/16 11:54 36.6 107 16 116/66 98 Nasal Cannula 2.0 08/04/16 08:00 Room Air 08/04/16 07:57 36.6 133 18 127/84 98 Nasal Cannula 2.0 08/04/16 07:49 152 119/72 Physical Exam General Appearance: WD/WN, no apparent distress Eyes: sclerae normal ENT: hearing grossly normal Neck: supple, no JVD, trachea midline Respiratory/Chest: no respiratory distress, no accessory muscle use, + wheezing (minimal wheeze in right upper lung field), + pertinent finding (lungs are predominantly clear with improved airflow quality compared to previous exams) Cardiovascular: no gallop, no murmur, + irregularly irregular Abdomen: normal bowel sounds, non tender, soft Extremities: no pedal edema, no calf tenderness Neurologic/Psychiatric: alert, oriented x 3 Skin: normal color, warm/dry Laboratory Results Last 24 Hours Test 08/04/16 11:34 08/04/16 12:50 08/04/16 16:23 08/04/16 20:07 Bedside Glucose 125 mg/dl 121 mg/dl 118 mg/dl Troponin I 0.015 ng/ml Test 08/05/16 06:44 08/05/16 06:45 Bedside Glucose 97 mg/dl Assessment and Plan Viral URI vs Bronchitis - H/O Severe Bronchiectasis: IMPROVING - Ceftriaxone 2 g IV daily and levofloxacin 100 mg IV Q48H - renal dosing - Symbicort 2 puffs BID and Xopenex - Singulair 10 mg daily Atrial Fibrillation with RVR: Intermittent - Echo (2013) - EF 40%; anterior wall motion abnormality - denies H/O CHF - Mild Systolic CHF per last echo - Metoprolol 37.5 mg daily and metoprolol IV Q6H PRN - Continue to hold Coumadin -supratherapeutic - trend INR - no evidence of active bleeding Acute Kidney Injury: IMPROVING - Gentle hydration of NSS at 60 mL/hr - Mild LE edema - Lasix PRN for SOB - otherwise avoid at this time - PCP instructed to stop - Trend BMP - creatinine improved to 1.6 Normochromic/cytic Anemia - Anemia of Chronic Disease? - Hemoccult pending - Will obtain iron studies and B12/folate Fluid & Electrolytes: - IVF - NSS at 60 mL/hr - Hyponatremia (Resolved); hypokalemia, hypomagnesemia - replete as necessary HTN: Stable - Losartan 100 mg daily Hyperthyroidism: - PTU 50 mg daily DVT Prophylaxis: LISA/SCD - supratherapeutic INR Code Status: FULL RESUSCITATION Disposition: PT/OT evaluations - patient lives at home with family nearby - recommendations for home health services - Hopeful discharge in 1-2 days Continued [facility] stay due to: multiple IV medications needed Discharge planning: home with home health
[2016-08-05 07:25] LABS: HEMATOCRIT 30.1 % (37-47); MEAN CELL VOLUME 85.3 fL (80-100); MEAN CORPUSCULAR HEMOGLOBIN 29.7 pg (25-34); MEAN CORPUSCULAR HGB CONC 34.9 g/dl (32-36); MEAN PLATELET VOLUME 9.5 fL (7.4-10.4); PLATELET COUNT 297 K/uL (130-400); RED BLOOD COUNT 3.53 M/uL (4.2-5.4); WHITE BLOOD COUNT 7.75 K/uL (4.8-10.8)
[2016-08-05] MEDS: METOPROLOL TARTRATE 1 MG/ML VIAL IV PRN ×3 (07:46→17:21)
[2016-08-05 07:53] LABS: PROTHROMBIN TIME (PATIENT) 54.5 SECONDS (9.0-12.0)
[2016-08-05 08:00] LABS: ALB/GLOB RATIO 0.5 (0.9-2); BUN/CREATININE RATIO 11.8 (10-20); CALCIUM 8.7 mg/dl (8.5-10.1); CREATININE 1.6 mg/dl (0.60-1.20); FERRITIN 283.3 ng/ml (8.0-388.0); MAGNESIUM 1.5 mg/dl (1.8-2.4); PHOSPHORUS 3.5 mg/dl (2.5-4.9); POTASSIUM 3.3 mmol/L (3.5-5.1)
[2016-08-05 08:02] LABS: BASO % 0.1 %; BASO ABS # 0.01 K/uL (0-0.2); COMPLETE YES; EOS % 0.4 %; GIANT PLATELETS 1+; IG% 0.5 %; LYMPH % 8.3 %; LYMPH ABS # 0.64 K/uL (1.2-3.4); MONO % 10.6 %; NEUT % 80.1 %; TOXIC GRANULATION 1+
[2016-08-05 08:04] LABS: INR 4.8 (0.9-1.1)
[2016-08-05] MEDS ORDERED: NURSING VERBAL MED ORDER ONE ×2 (08:30→17:45)
[2016-08-05] MEDS ORDERED: POTASSIUM CHLORIDE 20 MEQ TABCR PO ONE (09:00)
[2016-08-05] MEDS ORDERED: MAGNESIUM OXIDE 400 MG TAB PO ONE (09:00)
[2016-08-05] MEDS: BUDESONIDE/FORMOTEROL FUMARATE 160/4.5 60 PUFFS/INHALER INH SCH ×2 (09:53→21:29)
[2016-08-05] MEDS: SODIUM CHLORIDE 0.9% 1000ML 1,000 ML IV SCH (09:53)
[2016-08-05] MEDS: LOSARTAN POTASSIUM 50 MG TAB PO SCH (09:54)
[2016-08-05] MEDS: PROPYLTHIOURACIL 50 MG TAB PO SCH (09:56)
[2016-08-05] MEDS: METOPROLOL SUCC 25MG EXT REL TAB PO SCH (09:58)
[2016-08-05] MEDS: CHOLECALCIFEROL 1000 INTER.UNIT TAB PO SCH (09:58)
[2016-08-05] MEDS ORDERED: METOPROLOL TARTRATE 1 MG/ML VIAL IV STA (17:36)
[2016-08-05] MEDS ORDERED: LEVOFLOXACIN 500MG / D5W IV SCH (19:00)
[2016-08-05] MEDS ORDERED: LEVOFLOXACIN / D5W 750 MG in PREMIXED IN D5W 150 ML IV SCH (19:00)
[2016-08-05] MEDS: MONTELUKAST SOD 10 MG TAB PO SCH (20:06)
[2016-08-05] MEDS: SIMVASTATIN 20 MG TAB PO SCH (20:06)
[2016-08-05] MEDS: CEFTRIAXONE SOD INJ 2,000 MG in DEXTROSE 5% 50ML 50 ML IV SCH (22:35)
[2016-08-06] VITALS (10 sets, daily range): BP systolic 113–130; BP diastolic 69–82; PULSE 56–112; TEMP 36.5–37.3; O2SAT 93–99
[2016-08-06] MEDS: METOPROLOL TARTRATE 1 MG/ML VIAL IV PRN (02:07)
[2016-08-06] MEDS: LEVALBUTEROL 1.25MG/0.5ML NEB INH SCH ×4 (02:24→19:31)
[2016-08-06] MEDS: SODIUM CHLORIDE 0.9% 1000ML 1,000 ML IV SCH ×2 (03:03→19:57)
[2016-08-06 07:16] LABS: BASO % 0.3 %; BASO ABS # 0.02 K/uL (0-0.2); COMPLETE YES; EOS % 0.9 %; IG% 0.9 %; LYMPH % 8.3 %; LYMPH ABS # 0.64 K/uL (1.2-3.4); MEAN CELL VOLUME 88.2 fL (80-100); MEAN PLATELET VOLUME 9.1 fL (7.4-10.4); MONO % 11.1 %; NEUT % 78.5 %; PLATELET COUNT 280 K/uL (130-400); WHITE BLOOD COUNT 7.67 K/uL (4.8-10.8)
[2016-08-06 07:46] LABS: PROTHROMBIN TIME (PATIENT) 42.6 SECONDS (9.0-12.0)
[2016-08-06 07:50] LABS: INR 3.8 (0.9-1.1)
[2016-08-06] MEDS: IPRATROPIUM BROMIDE NEB SOLN 0.02% 2.5 ML VIAL INH SCH ×3 (07:51→19:31)
[2016-08-06 07:57] LABS: BUN/CREATININE RATIO 12.4 (10-20); CALCIUM 8.9 mg/dl (8.5-10.1); CREATININE 1.4 mg/dl (0.60-1.20); POTASSIUM 4.2 mmol/L (3.5-5.1)
[2016-08-06] MEDS: CHOLECALCIFEROL 1000 INTER.UNIT TAB PO SCH (08:48)
[2016-08-06] MEDS: METOPROLOL SUCC 25MG EXT REL TAB PO SCH (08:49)
[2016-08-06] MEDS: BUDESONIDE/FORMOTEROL FUMARATE 160/4.5 60 PUFFS/INHALER INH SCH ×2 (08:49→19:57)
[2016-08-06] MEDS: PROPYLTHIOURACIL 50 MG TAB PO SCH (08:49)
[2016-08-06] MEDS ORDERED: AZITHROMYCIN 250 MG TAB PO SCH (09:00)
--- NOTE | 2016-08-06 11:39 | Progress Note ---
Subjective Date of Service: Aug 06, 2016. Subjective Pt evaluation today including: conversation w/ patient, physical exam, chart review, lab review, review of inpatient medication list Patient seen and evaluated. Patient with intermittent A. fib with RVR. Continues to have poor sleep due to coughing and is reporting generalized fatigue Sputum remains thick beginning to lighten in color. Baseline chronic cough is of thick sputum that is white/clear. Patient has some loose stools likely due to antibiotic therapy but no other symptoms at this time. Participating in PT/OT and progressing well - do recommend home services Patient with [facility] who helps monitor her INR. [employer] records reviewed from PCP Dr. Hobson "She has a chronic cough with history of recurrent pulmonary infections. She has had pulmonary evaluation with Dr. Mcgee. She was scheduled for bronchoscopy 2011. She discontinued Coumadin in anticipation of this procedure and suffered a cardioembolic stroke. Chest CT scan March 2015 showed extensive centrilobular emphysema. There were also multiple small pulmonary nodules and consolidation right middle lobe. Nodules and right middle lobe changes date back to at least February 2013. In addition was aortic and coronary artery calcification." "Dyspnea on exertion is relatively stable. She remains active around the house. No chest pain. She occasionally feels her heart beating." Problem List Medical Problems: (1) Acute kidney failure Status: Acute (2) Atrial fibrillation with RVR Status: Acute (3) Flu-like symptoms Status: Acute Review of Systems Constitutional: No chills, No fever ENT: No nasal symptoms, No sore throat, No trouble swallowing Respiratory: + cough, + dyspnea on exertion (chronic nearing baseline), + sputum Cardiac: No chest pain Abdomen: + diarrhea, No constipation, No nausea, No pain, No vomiting Musculoskeletal: No calf pain Female : No dysuria Heme: No abnormal bleeding/bruising Skin: No bleeding, No rash Medications Current Inpatient Medications Medications (Trade) Dose Ordered Sig/Nani Route Start Time Stop Time Status Last Admin Dose Admin Miscellaneous (Iv Fluids Completed) 1 ea PRN PRN N/A 08/03/16 20:00 08/03/17 19:59 Acetaminophen (Tylenol Tab) 650 mg Q4H PRN PO 08/03/16 20:00 09/02/16 19:59 Al Hydrox/Mg Hydrox/Simethicone (Maalox Max Susp) 15 ml Q4H PRN PO 08/03/16 20:00 09/02/16 19:59 Magnesium Hydroxide (Milk Of Magnesia Susp) 30 ml Q12H PRN PO 08/03/16 20:00 09/02/16 19:59 Ondansetron HCl (Zofran Inj) 4 mg Q6H PRN IV 08/03/16 20:00 09/02/16 19:59 Nitroglycerin (Nitrostat Tab) 0.4 mg UD PRN SL 08/03/16 20:00 09/02/16 19:59 Polyethylene (Miralax Powder Packet) 17 gm DAILY PRN PO 08/03/16 20:00 09/02/16 19:59 Budesonide/ Formoterol Fumarate (Symbicort 160/ 4.5 Inh) 2 puffs BID INH 08/03/16 21:00 09/02/16 20:59 08/06/16 08:49 2 PUFFS Metoprolol Succinate (Toprol Xl Tab) 37.5 mg DAILY PO 08/04/16 09:00 09/03/16 08:59 08/06/16 08:49 37.5 MG Montelukast Sodium (Singulair Tab) 10 mg PM PO 08/03/16 21:00 09/02/16 20:59 08/05/16 20:06 10 MG Propylthiouracil (Ptu Tab) 50 mg DAILY PO 08/04/16 09:00 09/03/16 08:59 08/06/16 08:49 50 MG Simvastatin (Zocor Tab) 20 mg QPM PO 08/03/16 21:00 09/02/16 20:59 08/03/16 21:56 20 MG Warfarin Sodium (Coumadin Tab) 2 mg Q2D PO 08/03/16 20:00 09/02/16 19:59 Future Hold Warfarin Sodium (Coumadin Tab) 3 mg DAILY@1600 PO 08/04/16 16:00 09/03/16 15:59 Future Hold Cholecalciferol (Vitamin D Tab) 1,000 inter.unit DAILY PO 08/04/16 09:00 09/03/16 08:59 08/06/16 08:48 1,000 INTER.UNIT Miscellaneous Information (Order Awaiting Action) 1 ea QS N/A 08/04/16 00:00 09/03/16 00:00 Metoprolol Tartrate (Lopressor Iv) 5 mg Q6 PRN IV 08/03/16 20:15 09/02/16 20:14 08/06/16 02:07 5 MG Levalbuterol 1.25 mg 1.25 mg Q6R INH 08/03/16 21:00 09/02/16 20:59 08/06/16 07:51 1.25 MG Sodium Chloride (Nss 1000ml) 1,000 ml @ 60 mls/hr [id number] IV 08/04/16 16:15 09/03/16 16:14 08/06/16 03:03 60 MLS/HR Ipratropium [place] (Atrovent 0.02% 0.5MG/2.5ML Neb) 0.5 mg Q8R INH 08/05/16 00:00 09/04/16 00:00 08/06/16 07:51 0.5 MG Azithromycin (Zithromax Tab) 500 mg DAILY PO 08/06/16 09:00 08/08/16 09:01 08/06/16 08:48 500 MG Objective Vital Signs Date Time Temp Pulse Resp B/P Pulse Ox O2 Delivery O2 Flow Rate FiO2 08/06/16 11:18 36.5 102 20 115/69 98 Room Air 08/06/16 09:00 Room Air 08/06/16 07:24 36.8 105 18 128/82 98 Room Air 08/06/16 07:19 85 16 98 Room Air 08/06/16 04:00 Room Air 08/06/16 03:50 37.3 110 20 113/75 96 Room Air 08/06/16 02:24 57 18 97 Room Air 08/06/16 02:07 135 106/75 08/06/16 00:01 97 Room Air 08/05/16 23:26 37.0 109 20 111/71 97 Room Air 08/05/16 23:12 90 18 93 Room Air 08/05/16 20:00 Room Air 08/05/16 19:24 84 18 93 Room Air 08/05/16 19:06 37.0 94 16 113/80 96 Room Air 08/05/16 17:38 140 103/67 08/05/16 17:21 140 103/67 08/05/16 16:07 36.9 79 16 92/59 95 Room Air 08/05/16 16:00 Room Air 08/05/16 14:44 95 18 94 Room Air 08/05/16 14:09 142 08/05/16 13:45 98 08/05/16 12:00 Room Air 08/05/16 11:42 36.4 90 18 104/57 97 Room Air Physical Exam General Appearance: WD/WN, no apparent distress Eyes: sclerae normal ENT: hearing grossly normal Neck: supple, no JVD, trachea midline Respiratory/Chest: lungs clear, normal breath sounds, no respiratory distress, no accessory muscle use Cardiovascular: no gallop, no murmur, + irregularly irregular Abdomen: normal bowel sounds, non tender, soft Extremities: no calf tenderness Neurologic/Psychiatric: alert Skin: normal color, warm/dry Laboratory Results Last 24 Hours Test 08/05/16 16:08 08/06/16 06:59 Bedside Glucose 112 mg/dl White Blood Count 7.67 K/uL Red Blood Count 3.40 M/uL Hemoglobin 10.2 g/dL Hematocrit 30.0 % Mean Corpuscular Volume 88.2 fL Mean Corpuscular Hemoglobin 30.0 pg Mean Corpuscular Hemoglobin Concent 34.0 g/dl Platelet Count 280 K/uL Mean Platelet Volume 9.1 fL Neutrophils (%) (Auto) 78.5 % Lymphocytes (%) (Auto) 8.3 % Monocytes (%) (Auto) 11.1 % Eosinophils (%) (Auto) 0.9 % Basophils (%) (Auto) 0.3 % Neutrophils # (Auto) 6.02 K/uL Lymphocytes # (Auto) 0.64 K/uL Monocytes # (Auto) 0.85 K/uL Eosinophils # (Auto) 0.07 K/uL Basophils # (Auto) 0.02 K/uL RDW Standard Deviation 51.1 fL RDW Coefficient of Variation 15.7 % Immature Granulocyte % (Auto) 0.9 % Immature Granulocyte # (Auto) 0.07 K/uL Prothrombin Time 42.6 SECONDS Prothromb Time International Ratio 3.8 Sodium Level 139 mmol/L Potassium Level 4.2 mmol/L Chloride Level 108 mmol/L Carbon Dioxide Level 24 mmol/L Anion Gap 7.0 mmol/L Blood Urea Nitrogen 17 mg/dl Creatinine 1.40 mg/dl Est Creatinine Clear Calc Drug Dose 21.7 ml/min Estimated GFR () 39.3 Estimated GFR (Non- 33.9 BUN/Creatinine Ratio 12.4 Random Glucose 108 mg/dl Calcium Level 8.9 mg/dl Assessment and Plan COPD Exacerbation vs Viral URI vs Bronchitis - H/O Severe Bronchiectasis: IMPROVING - Azithromycin 500 mg daily - DAY #4 TOTAL ABx - Symbicort 2 puffs BID and Xopenex - Singulair 10 mg daily Atrial Fibrillation with RVR: Intermittent - Echo (2013) - EF 40%; anterior wall motion abnormality - denies H/O CHF - Mild Systolic CHF per last echo - Metoprolol 37.5 mg daily and metoprolol IV Q6H PRN - Continue to hold Coumadin -supratherapeutic - trend INR - no evidence of active bleeding -- Anticipate normalization tomorrow - will reinstitute when able - will need routine INR checks at D/C Acute Kidney Injury: IMPROVING - Gentle hydration of NSS at 60 mL/hr - D/C Lasix and Losartan - Trend BMP - creatinine improved to 1.4 - anticipate normalization by tomorrow Normochromic/cytic Anemia - Anemia of Chronic Disease? - Hemoccult pending - Will obtain iron studies and B12/folate Fluid & Electrolytes: - IVF - NSS at 60 mL/hr - Replete as necessary HTN: Stable - D/C Losartan 100 mg daily - likely indefinitely Hyperthyroidism: - PTU 50 mg daily DVT Prophylaxis: LISA/SCD - supratherapeutic INR Code Status: FULL RESUSCITATION Disposition: PT/OT evaluations - patient lives at home with family nearby - recommendations for home health services - Hopeful discharge in 1-2 days Continued [facility] stay due to: multiple IV medications needed Discharge planning: home with home health
[2016-08-06] MEDS: MONTELUKAST SOD 10 MG TAB PO SCH (19:57)
[2016-08-06] MEDS: SIMVASTATIN 20 MG TAB PO SCH (19:58)
[2016-08-07] VITALS (10 sets, daily range): BP systolic 118–141; BP diastolic 68–80; PULSE 81–115; TEMP 36.6–36.9; O2SAT 94–99
[2016-08-07] MEDS ORDERED: COUGH DROP (SUGAR FREE) LOZ 24 LOZ/1 BOX ONE (00:50)
[2016-08-07] MEDS: LEVALBUTEROL 1.25MG/0.5ML NEB INH SCH ×4 (02:54→19:34)
[2016-08-07] MEDS: IPRATROPIUM BROMIDE NEB SOLN 0.02% 2.5 ML VIAL INH SCH ×3 (07:21→19:34)
[2016-08-07] MEDS: METOPROLOL SUCC 25MG EXT REL TAB PO SCH (07:44)
[2016-08-07] MEDS: PROPYLTHIOURACIL 50 MG TAB PO SCH (07:45)
[2016-08-07] MEDS: CHOLECALCIFEROL 1000 INTER.UNIT TAB PO SCH (07:46)
[2016-08-07] MEDS: BUDESONIDE/FORMOTEROL FUMARATE 160/4.5 60 PUFFS/INHALER INH SCH ×2 (07:46→19:57)
[2016-08-07 08:03] LABS: HEMATOCRIT 31.1 % (37-47); MEAN CELL VOLUME 89.4 fL (80-100); MEAN CORPUSCULAR HEMOGLOBIN 30.2 pg (25-34); MEAN CORPUSCULAR HGB CONC 33.8 g/dl (32-36); MEAN PLATELET VOLUME 9.1 fL (7.4-10.4); PLATELET COUNT 299 K/uL (130-400); RED BLOOD COUNT 3.48 M/uL (4.2-5.4); WHITE BLOOD COUNT 7.33 K/uL (4.8-10.8)
[2016-08-07 08:14] LABS: INR 3.1 (0.9-1.1); PROTHROMBIN TIME (PATIENT) 34.7 SECONDS (9.0-12.0)
[2016-08-07 08:41] LABS: BUN/CREATININE RATIO 12.7 (10-20); CALCIUM 8.7 mg/dl (8.5-10.1); CREATININE 1.1 mg/dl (0.60-1.20); MAGNESIUM 1.3 mg/dl (1.8-2.4)
--- NOTE | 2016-08-07 09:15 | Progress Note ---
Subjective Date of Service: Aug 07, 2016. Subjective Pt evaluation today including: conversation w/ patient, physical exam, chart review, lab review, review of inpatient medication list Patient seen and evaluated. No acute events overnight. Sputum cx revealing strept. pneumonaie. She continues to improve. She remains afebrile without leukocytosis. Sputum is not as thick and continuing to lighten in color. She continues to have intermittent SOB with exertion but states this is largely baseline. Only complaint is of loose stool. Hemoccult negative and C. Diff pending - she is not having fevers or any associated abdominal pain. Problem List Medical Problems: (1) Acute kidney failure Status: Acute (2) Atrial fibrillation with RVR Status: Acute (3) Flu-like symptoms Status: Acute Review of Systems Constitutional: No chills, No fever Respiratory: + cough, + dyspnea on exertion (baseline), + sputum, No dyspnea at rest Cardiac: No chest pain Abdomen: + diarrhea, No constipation, No nausea, No pain, No vomiting Musculoskeletal: No calf pain, No swelling Female : No dysuria Neurologic: No numbness/tingling Heme: No abnormal bleeding/bruising Skin: No bleeding, No rash Medications Current Inpatient Medications Medications (Trade) Dose Ordered Sig/Nani Route Start Time Stop Time Status Last Admin Dose Admin Miscellaneous (Iv Fluids Completed) 1 ea PRN PRN N/A 08/03/16 20:00 08/03/17 19:59 Acetaminophen (Tylenol Tab) 650 mg Q4H PRN PO 08/03/16 20:00 09/02/16 19:59 08/07/16 07:58 650 MG Al Hydrox/Mg Hydrox/Simethicone (Maalox Max Susp) 15 ml Q4H PRN PO 08/03/16 20:00 09/02/16 19:59 Magnesium Hydroxide (Milk Of Magnesia Susp) 30 ml Q12H PRN PO 08/03/16 20:00 09/02/16 19:59 Ondansetron HCl (Zofran Inj) 4 mg Q6H PRN IV 08/03/16 20:00 09/02/16 19:59 Nitroglycerin (Nitrostat Tab) 0.4 mg UD PRN SL 08/03/16 20:00 09/02/16 19:59 Polyethylene (Miralax Powder Packet) 17 gm DAILY PRN PO 08/03/16 20:00 09/02/16 19:59 Budesonide/ Formoterol Fumarate (Symbicort 160/ 4.5 Inh) 2 puffs BID INH 08/03/16 21:00 09/02/16 20:59 08/07/16 07:46 2 PUFFS Metoprolol Succinate (Toprol Xl Tab) 37.5 mg DAILY PO 08/04/16 09:00 09/03/16 08:59 08/07/16 07:44 37.5 MG Montelukast Sodium (Singulair Tab) 10 mg PM PO 08/03/16 21:00 09/02/16 20:59 08/06/16 19:57 10 MG Propylthiouracil (Ptu Tab) 50 mg DAILY PO 08/04/16 09:00 09/03/16 08:59 08/07/16 07:45 50 MG Simvastatin (Zocor Tab) 20 mg QPM PO 08/03/16 21:00 09/02/16 20:59 08/06/16 19:58 20 MG Warfarin Sodium (Coumadin Tab) 2 mg Q2D PO 08/03/16 20:00 09/02/16 19:59 Future Hold Warfarin Sodium (Coumadin Tab) 3 mg DAILY@1600 PO 08/04/16 16:00 09/03/16 15:59 Future Hold Cholecalciferol (Vitamin D Tab) 1,000 inter.unit DAILY PO 08/04/16 09:00 09/03/16 08:59 08/07/16 07:46 1,000 INTER.UNIT Miscellaneous Information (Order Awaiting Action) 1 ea QS N/A 08/04/16 00:00 09/03/16 00:00 08/07/16 00:23 1 EA Metoprolol Tartrate (Lopressor Iv) 5 mg Q6 PRN IV 08/03/16 20:15 09/02/16 20:14 08/06/16 02:07 5 MG Levalbuterol 1.25 mg 1.25 mg Q6R INH 08/03/16 21:00 09/02/16 20:59 08/07/16 07:21 1.25 MG Sodium Chloride (Nss 1000ml) 1,000 ml @ 60 mls/hr [id number] IV 08/04/16 16:15 09/03/16 16:14 08/06/16 19:57 60 MLS/HR Ipratropium [place] 0.5 mg 0.5 mg Q8R INH 08/05/16 00:00 09/04/16 00:00 08/07/16 07:21 0.5 MG Ceftriaxone Sodium/Dextrose (Rocephin Inj/D5 50ml) 70 ml @ 100 mls/hr DAILY@0800 IV 08/07/16 08:00 08/14/16 07:59 Objective Vital Signs Date Time Temp Pulse Resp B/P Pulse Ox O2 Delivery O2 Flow Rate FiO2 08/07/16 07:51 36.6 107 20 141/80 98 Room Air 08/07/16 07:21 87 12 94 Room Air 08/07/16 04:06 Room Air 08/07/16 03:56 36.8 92 20 118/68 97 Room Air 08/07/16 02:54 81 16 94 Room Air 08/07/16 00:19 Room Air 08/07/16 00:00 36.7 96 22 122/73 97 Room Air 08/06/16 20:04 Room Air 08/06/16 19:31 56 16 93 Room Air 08/06/16 19:10 36.8 105 20 125/77 99 Room Air 08/06/16 16:00 Room Air 08/06/16 15:27 36.6 112 16 130/78 99 Room Air 08/06/16 14:26 96 16 97 Room Air 08/06/16 13:00 Room Air 08/06/16 11:18 36.5 102 20 115/69 98 Room Air Physical Exam General Appearance: WD/WN, no apparent distress Eyes: sclerae normal ENT: hearing grossly normal Neck: supple, no JVD, trachea midline Respiratory/Chest: lungs clear, normal breath sounds, no respiratory distress, no accessory muscle use Cardiovascular: no gallop, no murmur, + irregularly irregular Abdomen: normal bowel sounds, non tender, soft Extremities: no calf tenderness, + swelling (trace non-pitting edema) Neurologic/Psychiatric: alert, oriented x 3 Skin: normal color, warm/dry Laboratory Results Last 24 Hours Test 08/06/16 16:09 08/06/16 19:56 08/07/16 00:00 08/07/16 06:53 Bedside Glucose 90 mg/dl 99 mg/dl 95 mg/dl Stool Occult Blood NEGATIVE Test 08/07/16 07:50 White Blood Count 7.33 K/uL Red Blood Count 3.48 M/uL Hemoglobin 10.5 g/dL Hematocrit 31.1 % Mean Corpuscular Volume 89.4 fL Mean Corpuscular Hemoglobin 30.2 pg Mean Corpuscular Hemoglobin Concent 33.8 g/dl RDW Standard Deviation 52.6 fL RDW Coefficient of Variation 16.0 % Platelet Count 299 K/uL Mean Platelet Volume 9.1 fL Prothrombin Time 34.7 SECONDS Prothromb Time International Ratio 3.1 Sodium Level 141 mmol/L Potassium Level 4.0 mmol/L Chloride Level 107 mmol/L Carbon Dioxide Level 22 mmol/L Anion Gap 12.0 mmol/L Blood Urea Nitrogen 14 mg/dl Creatinine 1.10 mg/dl Est Creatinine Clear Calc Drug Dose 27.6 ml/min Estimated GFR () 52.6 Estimated GFR (Non- 45.4 BUN/Creatinine Ratio 12.7 Random Glucose 115 mg/dl Calcium Level 8.7 mg/dl Magnesium Level 1.3 mg/dl Assessment and Plan Strept Pneumonaie Pneumonia with Mild COPD Exacerbation - H/O Severe Bronchiectasis: IMPROVING - Ceftriaxone 2 g IV daily - DAY #5 TOTAL ABx - Symbicort 2 puffs BID and Xopenex - Singulair 10 mg daily Diarrhea: - C. Diff - pending Atrial Fibrillation with RVR: Intermittent - Echo (2013) - EF 40%; anterior wall motion abnormality - denies H/O CHF - Mild Systolic CHF per last echo - Metoprolol 37.5 mg daily and metoprolol IV Q6H PRN - Continue to hold Coumadin -supratherapeutic - trend INR - no evidence of active bleeding -- 3.1 - expect normalization tomorrow - can reinstitute tomorrow with O/P check Acute Kidney Injury: RESOLVED - Gentle hydration of NSS at 60 mL/hr - D/C Lasix and Losartan - Trend BMP Normochromic/cytic Anemia - Anemia of Chronic Disease?- Hemoccult negative Fluid & Electrolytes: - IVF - NSS at 60 mL/hr - Replete as necessary HTN: - D/C Losartan 100 mg daily - likely indefinitely - Continue to monitor Hyperthyroidism: - PTU 50 mg daily DVT Prophylaxis: LISA/SCD - supratherapeutic INR Code Status: FULL RESUSCITATION Disposition: Probable D/C tomorrow with [facility] - PCP F/U in 7-10 days discussed with Nurse Navigator Continued [facility] stay due to: multiple IV medications needed Discharge planning: home with home health
[2016-08-07] MEDS ORDERED: MAGNESIUM SULFATE 1GM / D5W 1 GM in PREMIXED IN D5W 100 ML IV ONE (09:45)
[2016-08-07] MEDS: CEFTRIAXONE SOD INJ 2,000 MG in DEXTROSE 5% 50ML 50 ML IV SCH (10:40)
[2016-08-07] MEDS: SODIUM CHLORIDE 0.9% 1000ML 1,000 ML IV SCH (10:42)
[2016-08-07] MEDS: METOPROLOL TARTRATE 1 MG/ML VIAL IV PRN (17:46)
[2016-08-07] MEDS: MONTELUKAST SOD 10 MG TAB PO SCH (19:57)
[2016-08-07] MEDS: SIMVASTATIN 20 MG TAB PO SCH (19:59)
[2016-08-08 00:10] VITALS: BP 134/87; PULSE 103; TEMP 36.9; O2SAT 97
[2016-08-08 01:59] VITALS: PULSE 118; O2SAT 97
[2016-08-08] MEDS: LEVALBUTEROL 1.25MG/0.5ML NEB INH SCH (01:59)
[2016-08-08] MEDS: SODIUM CHLORIDE 0.9% 1000ML 1,000 ML IV SCH (03:41)
[2016-08-08 06:42] LABS: HEMATOCRIT 28.7 % (37-47); MEAN CELL VOLUME 87.5 fL (80-100); MEAN CORPUSCULAR HEMOGLOBIN 29.9 pg (25-34); MEAN CORPUSCULAR HGB CONC 34.1 g/dl (32-36); PLATELET COUNT 282 K/uL (130-400); RED BLOOD COUNT 3.28 M/uL (4.2-5.4); WHITE BLOOD COUNT 7.92 K/uL (4.8-10.8)
[2016-08-08 07:00] VITALS: PULSE 116; O2SAT 94
[2016-08-08] MEDS: IPRATROPIUM BROMIDE NEB SOLN 0.02% 2.5 ML VIAL INH SCH (07:00)
[2016-08-08 07:04] LABS: INR 2.3 (0.9-1.1); PROTHROMBIN TIME (PATIENT) 25.9 SECONDS (9.0-12.0)
[2016-08-08 07:26] LABS: BUN/CREATININE RATIO 13.1 (10-20); CALCIUM 8.2 mg/dl (8.5-10.1); MAGNESIUM 1.4 mg/dl (1.8-2.4); POTASSIUM 4.3 mmol/L (3.5-5.1)
[2016-08-08 07:29] LABS: ALB/GLOB RATIO 0.5 (0.9-2); PHOSPHORUS 2.7 mg/dl (2.5-4.9)
[2016-08-08 07:45] VITALS: BP 137/83; PULSE 124; TEMP 36.6; O2SAT 94
[2016-08-08] MEDS: PROPYLTHIOURACIL 50 MG TAB PO SCH (07:54)
[2016-08-08] MEDS: CHOLECALCIFEROL 1000 INTER.UNIT TAB PO SCH (07:54)
[2016-08-08] MEDS: CEFTRIAXONE SOD INJ 2,000 MG in DEXTROSE 5% 50ML 50 ML IV SCH (07:54)
[2016-08-08] MEDS: BUDESONIDE/FORMOTEROL FUMARATE 160/4.5 60 PUFFS/INHALER INH SCH (07:54)
[2016-08-08 07:56] LABS: BASO % 0.4 %; BASO ABS # 0.03 K/uL (0-0.2); COMPLETE YES; IG% 0.8 %; LYMPH % 8.3 %; LYMPH ABS # 0.66 K/uL (1.2-3.4); MONO % 8.8 %; NEUT % 79.7 %; TOXIC GRANULATION 1+
[2016-08-08] MEDS ORDERED: METOPROLOL SUCC 50MG EXT REL TAB PO SCH (09:00)
[2016-08-08] MEDS ORDERED: DILTIAZEM HCL 120 MG CAPCR PO SCH (09:00)
[2016-08-08] MEDS ORDERED: MAGNESIUM OXIDE 400 MG TAB PO SCH (09:00)
[2016-08-08] MEDS ORDERED: SODIUM CHLORIDE 0.65% NA SOLN 45 ML (OCEAN) SCH (10:30)
[2016-08-08] MEDS ORDERED: CMD2 PO (10:54)
[2016-08-08] MEDS ORDERED: SALI0.6510 (10:54)
[2016-08-08] MEDS ORDERED: MGNO400 PO (10:54)
[2016-08-08] MEDS ORDERED: TPRSR50 PO (10:54)
[2016-08-08] MEDS ORDERED: LEVA45AE INH (10:54)
[2016-08-08] MEDS ORDERED: DILT120C50 PO (10:54)
[2016-08-08] MEDS ORDERED: CEFD1CAP14 PO (11:01)
--- NOTE | 2016-08-08 11:10 | Discharge Instructions ---
Discharge Instructions Date of Service Aug 08, 2016. Admission Reason for Admission: Afib, Shortness Of Breath Discharge Discharge Diagnosis / Problem: Pneumonia and Chronic Bronchitis Discharge Goals Goal(s): Decrease discomfort, Improve function, Increase independence Activity Recommendations Activity Limitations: as noted below Lifting Limitations: gradually increase as tolerated Exercise/Sports Limitations: as tolerated Shower/Bathe: no limitations . Instructions / Follow-Up Instructions / Follow-Up Strept Pneumonaie Pneumonia with Mild COPD Exacerbation (Chronic Bronchitis) IMPROVING - Continue antibiotic treatment - prescription provided for Cefdinir 300 mg twice a day for four more days - start tomorrow 08/09/16 as you had antibiotic today - Continue your regular home medications including Symbicort and Singulair - You will be provided with a prescription for a Xopenex inhaler to use 1 puff every 4 hours as needed for wheezing or shortness of breath -- This is like the medication we gave you here for your breathing treatments Diarrhea: - You may experience loose stool with antibiotics and you do not have c. diff ( a type of infection caused by antibiotics) or blood in the stool - You will be provided with a prescription for probiotics (good bacteria) while using your antibiotics Atrial Fibrillation with Fast Heart Rate: - To better control your blood pressure and heart rate we did adjust medications as follows - please discuss with your family doctor as they may want to change these at your follow-up appointment - STOP LOSARTAN (COZAAR) - this is a blood pressure medication which can be harsh on the kidneys since when you came in your kidney numbers were elevated but now normal - STOP LASIX (WATER PILL) - again this medication can be harsh on the kidneys - We increased your Metoprolol as follows - TAKE METOPROLOL 50 MG DAILY IN THE MORNING - We added Diltiazem 120 mg daily in the morning - this is a blood pressure medication that helps with atrial fibrillation - While admitted your coumadin level was too high and is now normal -- TAKE COUMADIN 2 MG DAILY UNTIL YOUR FAMILY DOCTOR FOLLOW-UP AND HAVE YOUR INR (COUMADIN LEVEL) CHECKED Acute Kidney Injury: LIKELY FROM DEHYDRATION FROM ILLNESS - STOP LASIX AND LOSARTAN AT THIS TIME Fluid & Electrolytes: - You have been having low magnesium levels - You will be provided a prescription for Magnesium 400 mg daily in the morning Follow-Up: - Please see Dr. Hobson on August 12, 2016 who may want to make adjustments at that time Current Hospital Diet Patient's current hospital diet: AHA Diet (Heart Healthy), Diabetes Type 2 Diet Discharge Diet Recommended Diet: Diabetes Type 2 Diet Pending Studies Studies pending at discharge: no Medical Emergencies . Who to Call and When: Medical Emergencies: If at any time you feel your situation is an emergency, please call 911 immediately. . Non-Emergent Contact Non-Emergency issues call your: Primary Care Provider Call Non-Emergent contact if: you have a fever, your pain is concerning you, you have any medication questions . . "Provider Documentation" section prepared by Melissa Romero. VTE Core Measure Inpt VTE Proph given/why not?: Warfarin (Coumadin)
[2016-08-08 12:12] VITALS: BP 122/79; PULSE 113; TEMP 36.7; O2SAT 99
[2016-08-08 14:27] VITALS: BP 122/79; PULSE 113; TEMP 36.7; O2SAT 99
--- NOTE | 2016-08-08 16:32 | Discharge Summary ---
Discharge Summary Date of Service Aug 08, 2016. Discharge Summary Admission Date: Aug 03, 2016 at 19:47 Discharge Date: Aug 08, 2016 Discharge Disposition: Home with services Principal Diagnosis: Pneumococcal pneumonia Problems/Secondary Diagnoses: Afib COPD bronchiectasis CAD border line DM HTN Immunizations: Have You Had Influenza Vaccine: Yes Influenza Vaccine Date: Mar 03, 2012 History of Tetanus Vaccine?: Unknown History of Pneumococcal: Yes History of Hepatitis B Vaccine: No Medication Reconciliation New Medications: Cefdinir (Omnicef) 300 Mg Cap 300 MG PO Q12H for 4 Days, #8 CAP Start tomorrow (08/09/16) Levalbuterol Tartrate (Levalbuterol Tartrate Hfa) 45 Mcg/Act Aer 1 PUFF INH Q4H PRN for SOB/Wheezing for 7 Days Diltiazem HCl (Diltiazem Cd) 120 Mg Capcr 120 MG PO QAM for 15 Days Magnesium Oxide (Magnesium-Oxide) 400 Mg Tab 400 MG PO QAM for 15 Days, #15 TAB Metoprolol Succinate (Metoprolol Succinate ER) 50 Mg Tabcr 50 MG PO DAILY for 15 Days Saline ([place] Nasal [place]) 0.65 % Spr 2 SPRAYS NA QID for 7 Days Changed Medications: Warfarin Sod (Coumadin) 2 Mg Tab 2 MG PO DAILY for 5 Days (Changed from: Q2D; take 2mg every other day and on the opposite day take 3mg) take 2mg every day until follow-up appointment on 08/12/16 Continued Medications: Budesonide/Formoterol Fumarate (Symbicort 160/4.5 Inhaler) 120 Puffs/ Aero 2 PUFFS INH BID, INHALER RINSE MOUTH AFTER USE Cholecalciferol (D 1000) 1,000 Unit Cap 1000 UNITS PO DAILY Ipratropium [place]bs (Nasal) (Ipratropium [place]) 0.06 % Spr 2 SPRAYS KANU UD 2 sprays each nostril 2-3 times daily Montelukast Sodium (Singulair) 10 Mg Tab 10 MG PO DAILY, TAB Propylthiouracil (Ptu) 50 Mg Tab 50 MG PO DAILY, TAB Simvastatin (Zocor) 40 Mg Tab 20 MG PO QPM, TAB HALF TABLET DAILY. Discontinued Medications: Furosemide (Lasix) 40 Mg Tab 40 MG PO DAILY PRN, TAB Losartan Potassium (Cozaar) 100 Mg Tab 100 MG PO DAILY, #30 Metoprolol Succinate (Metoprolol Succinate ER) 25 Mg Tabcr 1.5 TAB PO DAILY, #30 Warfarin Sodium (Coumadin) 3 Mg Tab 3 MG PO DAILY UD, TAB take 3mg every other day and 2mg on the opposite day Discharge Exam Review of Systems: Constitutional: No chills, No fatigue, No fever, No problem reported, No sweats, No weakness, No weight loss Eyes: No diplopia, No discharge, No eye pain, No problem reported, No redness, No worsening of vision ENT: No dental problems, No hearing loss, No nasal symptoms, No problem reported, No sore throat, No tinnitus, No trouble swallowing, No unusual epistaxis Respiratory: No cough, No dyspnea at rest, No dyspnea on exertion, No hemoptysis, No problem reported, No shortness of breath, No sputum, No wheezing Cardiovascular: No PND, No chest pain, No claudication, No edema, No orthopnea, No palpitations, No problem reported Abdomen: No GI bleeding, No constipation, No diarrhea, No nausea, No pain, No problem reported, No vomiting Musculoskeletal: No calf pain, No joint pain, No muscle pain, No problem reported, No swelling Genitourinary - Female: No dysmenorrhea, No dysuria, No hematuria, No menorrhagia, No metrorrhagia, No , No problem reported, No rash, No urinary frequency, No urinary incontinence, No urinary retention, No urinary urgency, No vaginal bleeding, No vaginal discharge, No vaginal itching, No vulvodynia Neurologic: No balance problems, No memory loss, No numbness/tingling, No paralysis, No problem reported, No vertigo, No weakness Psychiatric: No anhedonism, No anxiety, No depression symptoms, No insomnia , No problem reported, No substance abuse Endocrine: No excessive thirst, No excessive urination, No fatigue, No problem reported Hematologic / Lymphatic: No abnormal bleeding/bruising, No clotting problems , No night sweats, No problem reported, No swollen lymph nodes Integumentary: No bleeding, No color change, No itch, No new/changing skin lesions, No problem reported, No rash Physical Exam: General Appearance: no apparent distress Eyes: normal inspection, EOMI ENT: normal ENT inspection, hearing grossly normal Neck: supple Respiratory/Chest: chest non-tender, lungs clear, normal breath sounds, no respiratory distress Cardiovascular: regular rate, rhythm, no edema, no gallop, no JVD, no murmur Abdomen / GI: normal bowel sounds, non tender, soft, no organomegaly, no pulsatile mass Extremities: normal inspection, no calf tenderness, normal capillary refill , no pedal edema 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, no motor/sensory deficits , alert, normal mood/affect, normal reflexes Skin: normal color, warm/dry, no rash Hospital Course 86 years old female with PMHx of Afib, COPD, bronchiectasis, CAD, border line DM and HTN presented to the ED with SOB and productive cough she was admitted to telemetry on O2 supplement started on bronchodilators and steroids also started on braod spectrum Abx, shortly after Sputum Cx grew penumococcus Abx switched to CTXN 2 grams daily she will be discharged on Cefdinir X 3 days to finish total 10 days of Abx ( course was prolonged due to her underlying bronchiectasis) also discharged on Symbicort 2 puffs BID and Xopenex she was found to have MARIA DEL CARMEN, lasix and losartan were held. gentle hydration started and renal function improved she was found to have supratherapeutic INR and we held Coumadin until INR today dropped to 2.3 , she was on alternating dose of 2 to 3 mg , she was discharged on 2mg daily without alternation with 3mg. until she see her PCP. Total Time Spent: Greater than 30 minutes This includes examination of the patient, discharge planning, medication reconciliation, and communication with other providers. Discharge Instructions Please refer to the electronic Patient Visit Report (Discharge Instructions) for additional information.
== END 2016-08-08 16:00 | disposition home health service (06) | DRG 190 ==
LOC: ENRESERVTM → ENRESERVDT → C.EDB 16:42 → C.2T 19:47
PROVIDERS: ADMIT Hospitalist; ATTEND Internal Medicine
DX: J44.1 Chronic obstructive pulmonary disease with (acute) exacerbation (principal); J13 Pneumonia due to Streptococcus pneumoniae; N17.9 Acute kidney failure, unspecified; E87.1 Hypo-osmolality and hyponatremia; Z79.01 Long term (current) use of anticoagulants; I48.0 Paroxysmal atrial fibrillation; I10 Essential (primary) hypertension; I25.10 Atherosclerotic heart disease of native coronary artery without angina pectoris; I25.2 Old myocardial infarction; Z86.73 Personal history of transient ischemic attack (TIA), and cerebral infarction without residual deficits; E78.00 Pure hypercholesterolemia, unspecified; E05.90 Thyrotoxicosis, unspecified without thyrotoxic crisis or storm; E11.9 Type 2 diabetes mellitus without complications; Z87.891 Personal history of nicotine dependence

== ENCOUNTER → 2017-05-26 | Outpatient (CLI) | payer OTHER ==
[~2017-05-26] MED LIST changes: -AMLO2.5T PO; -CALC600T9 PO; +CHOL100041 PO; +CMD2 PO; +DILT-202 PO; -FURO40TA3 PO; +IPRA0.06 NAE; +LEVA45AE INH; -LOSA100T65 PO; +MGNO400 PO; +SALI0.6510; -TPRSR/25 PO; +TPRSR50 PO; -WARF3TAB PO
[2017-05-26 12:47] LABS: BLOOD UREA NITROGEN 31 mg/dl (7-18); CALCIUM 9.3 mg/dl (8.5-10.1); CARBON DIOXIDE 31 mmol/L (21-32); CREATININE 1.05 mg/dl (0.60-1.20); GLUCOSE 108 mg/dl (70-99); POTASSIUM 4.2 mmol/L (3.5-5.1); SODIUM 136 mmol/L (136-145)
== END | disposition home or self-care (01) ==
LOC: C.LABPBG 09:01
PROVIDERS: ATTEND Internal Medicine Geriatric Medicine
DX: I10 Essential (primary) hypertension (principal)